=== PATIENT | female | born 1980 | race Caucasian/White ===

== ENCOUNTER → 2023-09-21 10:25 | Outpatient (REF) | payer OTHER, SELFPAY | LOC: RAD 10:25 | PROVIDERS: ATTENDING PHYSICIAN Family Medicine | DX: M17.12 Unilateral primary osteoarthritis, left knee (principal) | CPT/HCPCS: 73564 ==

== ENCOUNTER → 2024-01-23 10:09 | Outpatient (REF) | payer OTHER, SELFPAY ==
[2024-01-23 11:57] LABS: Rubella Positive
[2024-01-23 12:28] LABS: Hepatitis B Surface Antibody Negative
[2024-01-25 15:57] LABS: Mumps Virus IgG Positive; Rubeola (Measles) IgG Negative; Varicella Zoster IgG (VZV) Positive
== END ==
LOC: OHS 10:09
PROVIDERS: ATTENDING PHYSICIAN Nurse Practitioner Family
DX: Z23 Encounter for immunization (principal)
CPT/HCPCS: 36415; 86480; 86706; 86735; 86762; 86765; 86787

== ENCOUNTER → 2024-02-08 14:42 | Outpatient (REF) | payer OTHER, SELFPAY | LOC: WDC 14:42 | PROVIDERS: ATTENDING PHYSICIAN Obstetrics & Gynecology; FAMILY PHYSICIAN Family Medicine | DX: Z12.31 Encounter for screening mammogram for malignant neoplasm of breast (principal) | CPT/HCPCS: 77063; 77067 ==

== ENCOUNTER → 2025-02-19 07:56 | Outpatient (REF) | payer OTHER, SELFPAY | LOC: WDC 07:56 | PROVIDERS: ATTENDING PHYSICIAN Student in an Organized Health Care Education/Training Program; FAMILY PHYSICIAN Family Medicine | DX: Z12.31 Encounter for screening mammogram for malignant neoplasm of breast (principal) | CPT/HCPCS: 77063; 77067 ==

== ENCOUNTER → 2025-03-18 10:05 | Outpatient (REF) | payer OTHER, SELFPAY | LOC: WDC 10:05 | PROVIDERS: ATTENDING PHYSICIAN Student in an Organized Health Care Education/Training Program; FAMILY PHYSICIAN Family Medicine | DX: R92.8 Other abnormal and inconclusive findings on diagnostic imaging of breast (principal) | CPT/HCPCS: 76642 ==

== ENCOUNTER → 2025-04-14 08:12 | Outpatient (REF) | payer OTHER, SELFPAY ==
--- NOTE | 2025-04-14 14:01 | OID.BR.INTR ---
[facility] Breast Navigator - Initial
- -
Date of Contact: 04/14/25
Met with patient. Patient given written information on navigator services available at [facility]. Will follow up as needed per protocol.
== END ==
LOC: WDC 08:12
PROVIDERS: ATTENDING PHYSICIAN Student in an Organized Health Care Education/Training Program; FAMILY PHYSICIAN Family Medicine
DX: N63.11 Unspecified lump in the right breast, upper outer quadrant (principal)
CPT/HCPCS: 19083; 88305; 88341; 88342; 88360; A4648

== ENCOUNTER → 2025-05-08 09:22 | Outpatient (REF) | payer OTHER, SELFPAY ==
[2025-05-08 09:04] LABS: HCG, Serum Qualitative Screen Negative
[2025-05-08 09:08] LABS: Glucose 85 mg/dl (70-99)
== END ==
LOC: PET 09:22
PROVIDERS: ATTENDING PHYSICIAN Surgery
DX: C50.411 Malignant neoplasm of upper-outer quadrant of right female breast (principal); Z01.812 Encounter for preprocedural laboratory examination
CPT/HCPCS: 36415; 78815; 82947; 84703; A9552

== ENCOUNTER → 2025-05-08 16:27 | Outpatient (REF) | payer OTHER, SELFPAY | LOC: MRI 3T 16:27 | PROVIDERS: ATTENDING PHYSICIAN Surgery; FAMILY PHYSICIAN Family Medicine | DX: C50.411 Malignant neoplasm of upper-outer quadrant of right female breast (principal) | CPT/HCPCS: 77049; A9585 ==

== ENCOUNTER → 2025-06-13 09:31 | Outpatient (REF) | payer OTHER, SELFPAY | LOC: HWRAD 09:31 | PROVIDERS: ATTENDING PHYSICIAN Obstetrics & Gynecology; FAMILY PHYSICIAN Family Medicine | DX: N92.6 Irregular menstruation, unspecified (principal) | CPT/HCPCS: 76856 ==

== ENCOUNTER → 2025-06-26 07:36 | Outpatient (REF) | payer OTHER, SELFPAY | LOC: WDC 07:36 | PROVIDERS: ATTENDING PHYSICIAN Surgery | DX: C50.411 Malignant neoplasm of upper-outer quadrant of right female breast (principal) | CPT/HCPCS: 38792; 76942; A9541 ==

== ENCOUNTER 2025-06-27 13:39 | Inpatient (IN) | payer OTHER, SELFPAY ==
[2025-06-27] VITALS (9 sets, daily range): BP systolic 0–135; BP diastolic 56–94; BMI 23.3; BMI 21.9
[2025-06-27] MEDS: NORMOSOL-R/PLASMALYTE-A 1000 IV (13:37)
[2025-06-27] MEDS: TRANSDERM-SCOP 1 PATCH TRANSDERM (14:01)
[2025-06-27] MEDS: LOVENOX 40 MG SC (14:01)
[2025-06-27 14:04] LABS: Prealbumin (Transthyretin) 27.4 mg/dl (17.6-36.0)
--- NOTE | 2025-06-27 16:14 | W.DCSUMMARY ---
Discharge Summary
Discharge Data
Date of Admission: 06/27/25
Date of Discharge: 06/28/25
-
Pending Results: No
Hospital Course
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 Routine postoperative course. Progressively able to tolerate regular diet, void, ambulate. Pain well controlled on PO meds. Discharged POD 1 with close surgical follow up
and VN.
Discharge Plan
-
Patient Disposition: Home with Home Care
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
Condition: Good
Diet: Regular
Activity: No strenuous activity
Additional Activity: T Anish arms for ROM, no heavy lifting > 10 lbs
Driving Restrictions: Not until seen by your Dr
Bathing Restrictions: OK to Shower
Other Services: VN
Wound Care: Strip and record drain output twice daily, light compression bra, dressings will be removed in office on monday (remove if wet from shower)
Referrals:
Cee Lambert MD [Family Provider, Family Practice]
Prescriptions:
New
acetaminophen [Tylenol Extra Strength] 500 mg Tablet
1,000 mg PO Q6 30 Days Qty: 240 0RF
gabapentin 300 mg Capsule
300 mg PO TID 30 Days Qty: 90 3RF
diazepam 5 mg Tablet
5 mg PO TID PRN (Reason: muscle spasms) 14 Days Qty: 42 0RF
oxycodone 5 mg Tablet
5 mg PO Q6H PRN (Reason: severe breakthrough pain) 14 Days Qty: 12 0RF
Patient Comments:
denies taking anytime recently
cefadroxil 500 mg capsule
500 mg PO BID Qty: 42 0RF
Patient Comments:
PO antibotic for when d/c home
Continued
levothyroxine 75 MCG tablet
75 mcg PO DAILY
lisinopril 5 MG tablet
5 mg PO DAILY
atorvastatin 80 mg Tablet
80 mg PO HS
benzoyl peroxide [Foaming Acne Face Wash] 10 % cleanser
1 applic TOPICAL DAILY
clindamycin phosphate 1 % lotion
1 applic TOPICAL DAILY
ezetimibe [Zetia] 10 mg Tablet
10 mg PO HS
duloxetine 20 mg Capsule,Delayed Release(Dr/Ec)
20 mg PO DAILY
melatonin
1 dose PO HS PRN (Reason: insomnia)
Intrauterine Device
Rx Instructions:
implanted currently
Held
aspirin 81 mg Tablet
81 mg PO HS
Hold Instructions: Resume on 07/09/25.
Discontinued
Tylenol PM
1 dose PO HS PRN (Reason: sleep)
Discharge Orders:
Discharge Patient (As Directed); Ordered 06/28/25
Ordered By: Gladys Frye
Discharge Date and Time
Discharge Date/Time: 06/28/25 14:52
Print Language: MALTESE
--- NOTE | 2025-06-27 16:14 | OR.RPT ---
Addendum entered and electronically signed by Faheem Lincoln MD 07/01/25 13:59:
Date of procedure: 06/27/2025
Original Note:
Operative Report
Operative Report
Surgeon: TYLER Lincoln MD
Preoperative diagnosis: Breast cancer
Postoperative diagnosis: Same
Procedure:
1. Bilateral immediate breast reconstruction with prepectoral tissue expanders
2. Total anterior coverage technique for ADM wrap
Complications: None
Anesthesia: General
EBL: 100cc
Hackler Doll Wigs size: 13 cm
Indications for procedure: Patient was referred to me by Dr. Frye with a recent diagnosis of breast cancer. She was planned to undergo bilateral mastectomy. We discussed her options for breast reconstruction at length including implant based
and autologous options. The patient opted for immediate reconstruction with tissue expanders. She understands that the final reconstruction will be staged. We also discussed the use of ADM and spy angiography. Risks include reconstructive
failure, capsular contracture, infection, delayed wound healing, mastectomy skin flap necrosis, hematoma, seroma and need for repeat procedure. Patient understood these risks and desired to proceed. Consents were signed accordingly.
Procedure in detail: Patient was identified the preoperative area and the surgical site was confirmed to be the bilateral breast. All questions were answered and consents were confirmed. Patient was then sat upright and normal anatomical landmarks
were marked including midline and inframammary fold. Patient was then taken back to the operating room placed supine on the table. She was prepped and draped in the usual sterile fashion using ChloraPrep solution. A Lamas catheter was placed. A
timeout for patient safety was performed was confirmed that bilateral SCDs were in place and preoperative antibiotics administered. The procedure began with Dr. Frye first performing the mastectomy. Her op report will be dictated separately.
When I entered the procedure, the first sided mastectomy had been completed. As such I inspected the wound bed of the chest wall and ensured meticulous hemostasis. The base width was measured and appropriate tissue cabinet worker was selected. Two 6 x
16 sheets of Cortiva ADM were soaked in dilute Betadine solution and passed through the skin graft mesher on carrier of 1-1.5. This construct was then draped around the tissue cabinet worker in a total anterior coverage technique. The cabinet worker ADM
construct was then sutured to the chest wall with a series of 2-0 silk sutures. Pectoralis and intercostal blocks were performed with Marcaine. 2 drains were then placed in the preaxial area line with a long subcutaneous tunnel and sutured in
place with 2-0 Prolene sutures. The wound was irrigated with double antibiotic solution and dilute Betadine. The mastectomy incisions were then closed with a series of 3-0 Vicryl's in the deep subcutaneous tissues followed by 3-0 and 4-0
Monocryl's in the deep dermis and superficial skin.
Attention was then placed on the contralateral side after completion of the mastectomy. The exact same procedure was performed. An cabinet worker of the same size was opened and 2 sheets of ADM were soaked in Betadine, meshed, and draped around the
anterior surface of the cabinet worker in a total anterior coverage technique. The construct was then sutured to the chest wall using 2-0 silks. Pectoralis and intercostal blocks were performed. Meticulous hemostasis was ensured and the wound was
irrigated with combination of double antibiotic solution consisting of Ancef and gentamicin as well as dilute Betadine. The wound was closed in layers with 3-0 Vicryl followed by 3-0 Monocryl and 4-0 Monocryl superficial skin.
The wounds were dressed accordingly and a supportive bra was placed. The patient was extubated taken to the PACU for further care. All counts were correct at the end the case was performed out complication.
--- NOTE | 2025-06-27 16:15 | W.IMMPOSTOP ---
Surgical Immed Post Op Note
-
Primary Surgeon: TYLER Lincoln MD
Assisting Surgeon:
Pre-op Diagnosis: Breast CA
Post-op Diagnosis: Same
Procedure Performed: Bilateral immediate breast reconstruction with tissue expanders, ADM
Anesthesia Type: GA
Specimen / Cultures: Per Dr. Frye
Estimated Blood Loss: 100cc
Complications: None
Operative Findings: As expected
[2025-06-27 18:17] LABS: Hematocrit 37.0 % (37.0-47.0); Hemoglobin 12.7 g/dL (12.0-16.0); Mean Corp Hgb Conc. 34.3 g/dL (33.0-37.0); Mean Corpuscular Volume 95.4 fL (81.0-99.0); Nucleated Red Blood Cells % 0 %; Platelet Count 261 10^3/uL (130-400); Red Cell Dist. Width 13.1 % (11.5-14.5)
[2025-06-27 18:29] LABS: PT 14.5 Sec (11.4-14.6)
[2025-06-27 18:30] LABS: APTT 34.8 Sec (23.4-35.0)
[2025-06-27] MEDS: DILAUDID 0.25 MG IV (21:16)
--- NOTE | 2025-06-27 21:45 | PTCARENOTE ---
Pt 44 y/o F arrived on 2S at 01:15 post-op b/l Mastectomies with immediate breast reconstruction with tissue expanders, ebl 100. PMH Giorgi's disease, HTN, HLD, Primary osteoarthritis of left knee, PVCs (premature ventricular contractions), Sinus
tachycardia, Other chronic pain, Aortic root dilation. Pt wearing a surgical bra, with incisions covered with a surgical dressing on b/l breasts and 2 MARINO drains (drains A&B) on right breast and 2 MARINO drains (drains C&D) on left breast. The 4 MARINO
drains are to be stripped, emptied & recorded every 4 hours. Pt arrived on unit with a Adams. PT AOX3, sister and friend with pt, pain addressed, bed in a low position, call light in reach.
[2025-06-27] MEDS: VALIUM 5 MG PO (21:50)
[2025-06-27] MEDS: NEURONTIN 300 MG PO (21:50)
[2025-06-27] MEDS: COLACE 100 MG PO (21:50)
[2025-06-27] MEDS: ZETIA 10 MG PO (21:53)
[2025-06-27] MEDS: LIPITOR 80 MG PO (21:53)
[2025-06-27] MEDS: NEURONTIN PO (22:01)
[2025-06-27] MEDS: VALIUM PO (22:01)
[2025-06-27] MEDS: TYLENOL 1000 MG PO (23:00)
[2025-06-28 00:37] VITALS: BP 99/65
[2025-06-28 01:35] VITALS: BP 96/68
[2025-06-28] MEDS: ANCEF 5 IV ×2 (03:05→13:38)
[2025-06-28 05:00] VITALS: BP 105/71
[2025-06-28] MEDS: TYLENOL 1000 MG PO ×2 (05:15→13:38)
[2025-06-28] MEDS: SYNTHROID 75 MCG PO (05:15)
[2025-06-28 06:47] LABS: Hematocrit 33.0 % (37.0-47.0); Hemoglobin 11.4 g/dL (12.0-16.0)
[2025-06-28 07:06] LABS: Blood Urea Nitrogen 10 mg/dl (7-17); Calcium 7.8 mg/dl (8.4-10.2); Carbon Dioxide 25 mmol/L (22-30); Chloride 107 mmol/L (98-107); Estimated Creatinine Clearance 94 ml/min; Glucose 98 mg/dl (70-99); Potassium 4.2 mmol/L (3.5-5.1); Sodium 135 mmol/L (135-145); eGFR > 60.00
[2025-06-28 07:40] VITALS: BP 107/72
--- NOTE | 2025-06-28 08:49 | W.PN.UPDATE ---
Update Note
Progress Note Update
The patient is a 44 Y/O female POD #1 S/P bilateral nipple sparing mastectomies and right sentinel lymph node mapping and biopsy with immediate implant-based reconstruction by Dr. Lincoln. She did not sleep well last night but was able to eat
breakfast and is taking her prescribed pain medication regimen. Her Lamas catheter needs to be removed. Her incisions are clean and dry and flaps are viable. Plan is to discharge to home with VNA in place. She will see Dr. Lincoln next week and
myself in 2 weeks. Pathology is pending
--- NOTE | 2025-06-28 08:55 | W.DS.TRANS ---
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
-
Discharge Instructions:
Sleep Apnea Risk Low
Discharge Diagnosis/Procedures s/p bilateral mastectomy and immediate public speaker
reconstruction
Diet Regular
Activity No strenuous activity
Additional Activity T Anish arms for ROM, no heavy lifting > 10 lbs
Driving Restrictions Not until seen by your Dr
Bathing Restrictions OK to Shower
Other Services VN
Wound Care Strip and record drain output twice daily, light
compression bra, dressings will be removed in
office on monday (remove if wet from shower)
Instructions:
Stand-Alone Forms:
Changes to Home Medications: No
Discharge Medications:
DC Medications w/original date entered in [employer]
levothyroxine 75 mcg tablet 75 mcg PO DAILY Thyroid 09/05/19
lisinopril 5 mg tablet 5 mg PO DAILY Blood Pressure 02/28/20
aspirin 81 mg tablet 81 mg PO HS Blood Clot Prevention/Tx 06/26/25
Held on 06/27/25. Instructions: Resume on 07/09/25.
atorvastatin 80 mg tablet 80 mg PO HS cholesterol 06/26/25
benzoyl peroxide 10 % topical cleanser (Foaming Acne Face Wash) 1 applic topical DAILY Skin Issues 06/26/25
clindamycin phosphate 1 % lotion 1 applic topical DAILY Skin Issues 06/26/25
duloxetine 20 mg capsule,delayed release 20 mg PO DAILY depression/anxiety 06/26/25
ezetimibe 10 mg tablet (Zetia) 10 mg PO HS cholesterol 06/26/25
melatonin 1 dose PO HS PRN insomnia 06/26/25
Intrauterine Device 06/27/25
acetaminophen 500 mg tablet (Tylenol Extra Strength) 1,000 mg (2 x 500 mg) PO Q6 30 days #240 tabs 06/27/25
cefadroxil 500 mg capsule 500 mg PO BID #42 caps 06/27/25
diazepam 5 mg tablet 5 mg PO TID PRN muscle spasms 14 days #42 tabs 06/27/25
gabapentin 300 mg capsule 300 mg PO TID 30 days #90 caps 06/27/25
oxycodone 5 mg tablet 5 mg PO Q6H PRN severe breakthrough pain 14 days #12 tabs 06/27/25
Home Medication Changes
Pending Results: Yes (pathology report)
Total time spent discharging patient (in min): 20
--- NOTE | 2025-06-28 09:08 | W.IMMPOSTOP ---
Surgical Immed Post Op Note
-
Primary Surgeon: Uday
Assisting Surgeon: None
Pre-op Diagnosis: Left breast ca
Post-op Diagnosis: Left breast ca
Procedure Performed: Bilateral nipple-sparing mastectomies, right sentinel lymph node mapping and biopsy
Anesthesia Type: GET
Specimen / Cultures: Bilateral breasts, right sentinel nodes
Estimated Blood Loss: 100cc
Complications: None
Operative Findings: None
--- NOTE | 2025-06-28 09:09 | OR.RPT ---
Operative Report
Operative Report
Date of procedure: 06/27/2025
Surgeon: Uday
Preoperative diagnosis: Right breast carcinoma
Postoperative diagnosis: Right breast carcinoma
Procedure: Bilateral nipple sparing mastectomies and right sentinel lymph node mapping and biopsy
The patient is a 44-year-old female who presented with locally advanced right breast carcinoma. 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
treatment. On the day prior to the procedure she presented to the breast imaging center where technetium radiotracer was injected into the right breast parenchyma. On the day of the procedure she presented to same-day surgical services unit where
she was prepped. DVT and antibiotic prophylaxis were provided. She verified site and procedure and was taken to the operating room. In the supine position general anesthesia was induced. Lamas catheter was inserted using aseptic technique. Both
breasts and chest were prepped and draped in the usual sterile fashion. Appropriate timeout was performed by all staff members.
Inframammary incision was made beginning on the left side. Breast was elevated off the chest wall using the PlasmaBlade and lighted retractor. Any larger vessels were controlled with 3-0 silk ties. Then the oncoplastic plane was entered and the
skin and subcutaneous tissue was removed and elevated off the underlying breast parenchyma. Care was taken to preserve integrity of blood supply to the flap. The breast was taken off the chest wall. It was oriented for the pathologist and time
out of body was noted. Wound was irrigated and a moist pack was placed and plastic surgery entered to begin the reconstructive portion of the procedure. We moved to the right side and performed the mastectomy in the same fashion. Once that was
removed entry into the axilla was obtained by incising clavipectoral fascia with the cautery. Using the neoprobe gamma probe 3 sentinel node packets were encountered and excised. Feeding vessels to the nodes were controlled with 3-0 silk tie.
Again a moist pack was placed and plastic surgery continued with the reconstructive portion of the procedure
([id number])
Wayland Node Bx Breast Cancer
Wayland Node Bx Breast Cancer
Operation performed with curative intent: Yes
Tracer(s) to ID Wayland Nodes in Non-Neoadjuvant setting: Radioactive Tracer
Tracer(s) to ID Sentinal Nodes in the Neoadjuvant Setting: N/A
All nodes at end of dye-filled Lymphatic Channel removed: N/A
All Significantly Radioactive Nodes were removed: Yes
All Palpably Suspicious Nodes were Removed: Yes
Bx Proven Pos Nodes Marked Prior to Chemo ID'd & Removed: N/A
[2025-06-28] MEDS: CYMBALTA DELAYED RELEASE 20 MG PO (09:19)
[2025-06-28] MEDS: COLACE 100 MG PO (09:19)
[2025-06-28] MEDS: NEURONTIN 300 MG PO (09:19)
[2025-06-28] MEDS: ROXICODONE 5 MG PO (09:19)
[2025-06-28] MEDS: VALIUM 5 MG PO (09:20)
[2025-06-28] MEDS: ZESTRIL 5 MG PO (09:20)
[2025-06-28 11:25] VITALS: BP 108/76
[2025-06-28] MEDS: REMOVE SCOPOLAMINE PATCH 1 PATCH REMOVE (13:38)
--- NOTE | 2025-06-28 13:51 | CM ---
Initial assessment completed with pt.
Pt is a 44yr old female admitted for bilateral mastectomy.
At baseline, pt is indep with mobility/ADLs, drives, and works at [employer]
Pt lives with her mother who will assist at sd.
Pt understanding that she can not drive for 2 weeks and can not work for 6 weeks.
Pt interested in [facility] at sd.
PCP; Cee Lambert
Pharm; JON Abdi
PLAN; Home with VN
== END 2025-06-28 14:52 | disposition home health service (06) | DRG 581 ==
LOC: 2 SOUTH 13:39
PROVIDERS: Surgery Plastic and Reconstructive Surgery; ADMITTING PHYSICIAN Surgery; FAMILY PHYSICIAN Family Medicine
PROC: 0HHV0NZ Insertion of Tissue Expander into Bilateral Breast, Open Approach (ICD-10-PCS; 2025-06-27)
PROC: 07B50ZX Excision of Right Axillary Lymphatic, Open Approach, Diagnostic (ICD-10-PCS; 2025-06-27)
PROC: 0HTV0ZZ Resection of Bilateral Breast, Open Approach (ICD-10-PCS; 2025-06-27)
DX: C50.911 Malignant neoplasm of unspecified site of right female breast (principal); C50.912 Malignant neoplasm of unspecified site of left female breast; E78.00 Pure hypercholesterolemia, unspecified; E03.9 Hypothyroidism, unspecified; I10 Essential (primary) hypertension; Z17.0 Estrogen receptor positive status [ER+]; Z17.21 Progesterone receptor positive status; Z17.32 Human epidermal growth factor receptor 2 negative status; Z79.890 Hormone replacement therapy; Z79.899 Other long term (current) drug therapy
CPT/HCPCS: 80048; 82652; 84134; 85014; 85018; 85025; 85611; 85732; 88307; 88341; 88342; 88360; C1789; L8000; Q4100

== ENCOUNTER 2025-07-08 20:10 | Inpatient (IN) | payer OTHER, SELFPAY ==
[2025-07-08 17:19] VITALS: BP 131/79
--- NOTE | 2025-07-08 17:58 | ED.GENMED ---
History of Present Illness
<ELSY Stewart - Last Filed: 07/08/25 20:56>
General
Chief Complaint: Post Operative Problem(s)
Source: patient and family
Exam Limitations: none
Time Seen by Provider: 07/08/25 17:35
Nursing documentation reviewed up to this point in time: agreed with
History of Present Illness
History of Present Illness:
Patient is a 44-year-old female with history of hypercholesteremia hypothyroidism hypertension right breast carcinoma status post bilateral mastectomy June 27. Patient at the time of reconstruction has breast expanders currently in place
bilaterally on Monday patient noted that her right breast was becoming more swollen and painful.. She did see yesterday in the office and was noted to have some scabbing under both breasts and instructed to go to the ER if things get
worse. Today she developed a fever of 102.
discharge instructions state the pt was discharged on cefadroxil and is taking.
Past History
<ELSY Stewart - Last Filed: 07/08/25 20:56>
Past History
ED Past Medical History: None
ED Past Surgical History: None
Social History
Tobacco: Non-smoker
Alcohol: Occasional
Drug: None
Personal: Single
Living: with family
Employment: Employed ([employer])
Phy Exam
<ELSY Stewart - Last Filed: 07/08/25 20:56>
General Physical Exam
General Presentation: no apparent distress
General age: appears stated age
General Skin: warm and dry
General Habitus: normal
General Mental: alert
General Hydration: appears well hydrated
Neurological Exam
Neurological Exam: alert and oriented x3
Musculoskeletal Exam
Musculoskeletal Exam: full ROM
Skin Exam
Skin Exam: normal color and warm/dry
Psychiatric Exam
Psychiatric Exam: normal mood/affect
Course
<ELSY Stewart - Last Filed: 07/08/25 20:56>
Orders/Labs/Results
Orders:
Orders
07/08/25 17:37
Complete Blood Count/With Diff Urgent
Comprehensive Metabolic Panel Urgent
Lactic Acid Urgent
Blood Culture Urgent
BUTCH Source: Blood/Venous
Specimen Description:
07/08/25 18:19
Electrocardiogram (*1) Stat
Reason for Study: Other
Other Reason for Exam: chest pain
Cardiac Monitoring- Treatment ONCE
EKG- Treatment ONCE
07/08/25 18:22
CT Chest With Iv Contrast Urgent
Comment:
Reason For Exam: eval for breast infection mastectomy w/ expanders
07/08/25 18:23
Blood Culture Urgent
BUTCH Source: Blood/Venous
Specimen Description:
07/08/25 18:25
0.9% Sodium Chloride 1000 ml [Nss] 1,000 ml IV BOLUS
Acetaminophen [Tylenol] 1,000 mg PO NOW STA
07/08/25 18:31
Vancomycin [Vancocin] 1,500 mg 0.9% Sodium Chloride 500 ml [Nss] 500 ml IV NOW
07/08/25 19:42
Admit/Transfer Patient As Directed
Co-Sign Provider:
Level of Care: Inpatient admission
Assign to:: Medical/Surgical
Physician / Group: Marcus
Diagnosis: Post-Surgical Infection
Reason for Hospitalization: Post-Surgical Infection
Expected length of stay greater than two midnights?: Yes
ELOS- Estimated Length of Stay in days: 3
I certify the patient meets the requirements for IP care: Yes
0.9% Sodium Chloride 1000 ml [Nss] 1,000 ml IV BOLUS
PRN Pain Medication Management As Directed
May give lesser potent ordered pain med per pt: Yes
preference::
Protocol:: Medication orders for pain may be administered in a
manner that supports deferring to patient preference
when the pt is:
- Requesting an ordered lesser potent pain medication.
Least to most potent pain medications are defined
as: acetaminophen < NSAID < tramadol < opioids
(morphine, oxycodone, hydromorphone).
- Requesting a lesser dose of the same medication IF
ORDERED.
- Requesting a less intrusive route of administration
if both routes are prescribed by the provider (PO <
IV).
07/08/25 19:44
Code Status As Directed
Resuscitation Status: Full Code
Abnormal Lab Results
07/08/25
17:37
WBC 14.9 H 10^3/uL
(4.8-10.8)
RBC 3.74 L 10^6/uL
(4.20-5.40)
MCV 102.9 H fL
(81.0-99.0)
MCH 33.4 H pg
(27.0-31.0)
MCHC 32.5 L g/dL
(33.0-37.0)
Abs Immat Gran (auto) 0.1 H 10^3/uL
(0-0.05)
Absolute Neuts (auto) 12.5 H 10^3/uL
(1.4-6.5)
Absolute Monos (auto) 0.9 H 10^3/uL
(0.1-0.6)
Neutrophils % 84.0 H %
(42.2-75.2)
Lymphocytes % 8.7 L %
(20.5-51.1)
Glucose 114 H mg/dl
(70-99)
07/08/25 17:37
07/08/25 17:37
Vital Signs
Initial and Last Documented VS:
Initial Vital Signs
Temp Pulse Resp BP Pulse Ox
100.2 F 145 16 131/79 99
07/08/25 17:19 07/08/25 17:19 07/08/25 17:19 07/08/25 17:19 07/08/25 17:19
Last Documented Vital Signs
Temp Pulse Resp BP Pulse Ox
99.2 F 105 20 131/79 99
07/08/25 19:44 07/08/25 20:00 07/08/25 20:03 07/08/25 17:19 07/08/25 18:00
<Max Robles, DO - Last Filed: 07/08/25 19:32>
Orders/Labs/Results
Orders:
Orders
07/08/25 17:37
Complete Blood Count/With Diff Urgent
Comprehensive Metabolic Panel Urgent
Lactic Acid Urgent
Blood Culture Urgent
BUTCH Source: Blood/Venous
Specimen Description:
07/08/25 18:19
Electrocardiogram (*1) Stat
Reason for Study: Other
Other Reason for Exam: chest pain
Cardiac Monitoring- Treatment ONCE
EKG- Treatment ONCE
07/08/25 18:22
CT Chest With Iv Contrast Urgent
Comment:
Reason For Exam: eval for breast infection mastectomy w/ expanders
07/08/25 18:23
Blood Culture Urgent
BUTCH Source: Blood/Venous
Specimen Description:
07/08/25 18:25
0.9% Sodium Chloride 1000 ml [Nss] 1,000 ml IV BOLUS
Acetaminophen [Tylenol] 1,000 mg PO NOW STA
07/08/25 18:31
Vancomycin [Vancocin] 1,500 mg 0.9% Sodium Chloride 500 ml [Nss] 500 ml IV NOW
07/08/25 19:42
Admit/Transfer Patient As Directed
Co-Sign Provider:
Level of Care: Inpatient admission
Assign to:: Medical/Surgical
Physician / Group: Marcus
Diagnosis: Post-Surgical Infection
Reason for Hospitalization: Post-Surgical Infection
Expected length of stay greater than two midnights?: Yes
ELOS- Estimated Length of Stay in days: 3
I certify the patient meets the requirements for IP care: Yes
0.9% Sodium Chloride 1000 ml [Nss] 1,000 ml IV BOLUS
PRN Pain Medication Management As Directed
May give lesser potent ordered pain med per pt: Yes
preference::
Protocol:: Medication orders for pain may be administered in a
manner that supports deferring to patient preference
when the pt is:
- Requesting an ordered lesser potent pain medication.
Least to most potent pain medications are defined
as: acetaminophen < NSAID < tramadol < opioids
(morphine, oxycodone, hydromorphone).
- Requesting a lesser dose of the same medication IF
ORDERED.
- Requesting a less intrusive route of administration
if both routes are prescribed by the provider (PO <
IV).
07/08/25 19:44
Code Status As Directed
Resuscitation Status: Full Code
Abnormal Lab Results
07/08/25
17:37
WBC 14.9 H 10^3/uL
(4.8-10.8)
RBC 3.74 L 10^6/uL
(4.20-5.40)
MCV 102.9 H fL
(81.0-99.0)
MCH 33.4 H pg
(27.0-31.0)
MCHC 32.5 L g/dL
(33.0-37.0)
Abs Immat Gran (auto) 0.1 H 10^3/uL
(0-0.05)
Absolute Neuts (auto) 12.5 H 10^3/uL
(1.4-6.5)
Absolute Monos (auto) 0.9 H 10^3/uL
(0.1-0.6)
Neutrophils % 84.0 H %
(42.2-75.2)
Lymphocytes % 8.7 L %
(20.5-51.1)
Glucose 114 H mg/dl
(70-99)
07/08/25 17:37
07/08/25 17:37
Vital Signs
Initial and Last Documented VS:
Initial Vital Signs
Temp Pulse Resp BP Pulse Ox
100.2 F 145 16 131/79 99
07/08/25 17:19 07/08/25 17:19 07/08/25 17:19 07/08/25 17:19 07/08/25 17:19
Last Documented Vital Signs
Temp Pulse Resp BP Pulse Ox
99.2 F 105 20 131/79 99
07/08/25 19:44 07/08/25 20:00 07/08/25 20:03 07/08/25 17:19 07/08/25 18:00
<ELSY Stewart - Last Filed: 07/08/25 20:56>
MDM/Problems Addressed
MDM/Problems Addressed:
Patient is a 44-year-old female with recent bilateral mastectomy June [address] She started with pain in the right breast on Monday several days ago and started with a fever today of 102. She presents tachycardic low-grade
temp. Patient last took Tylenol around 2 PM and her pain medication. She has obvious scabbing to bilateral breast but right breast is very red, there is very minimal redness to the left breast but there is still erythema. Case discussed with
Uday as well as Dr. Lincoln. Broad-spectrum antibiotics, vancomycin ordered more fluids and Tylenol. Plastics does recommend getting a CAT scan with IV contrast.
Will require admission patient admitted to the hospital service.
Chronic conditions affecting care:
SVT high cholesterol
<ELSY Stewart - Last Filed: 07/08/25 20:56>
*Pulse Oximetry
SaO2: 99
Oxygen Mode of Delivery: Room air
Patient hypoxic: no
*Critical Care Note
Total Time (30-74mins, 75-104mins- exclusive of procedures): Not Applicable
<ELSY Stewart - Last Filed: 07/08/25 20:56>
Patient Management
Discussion with other providers: Facility Environmental Technician (Dr. Frye and DR Lincoln )
ED Attending Note
<ELSY Stewart - Last Filed: 07/08/25 20:56>
-
Portions of this chart may have been created with voice recognition software.� Occasional wrong word or��sound alike� substitutions may have occurred due to the inherent limitations of voice recognition software.
<Max Roblse DO - Last Filed: 07/08/25 19:32>
ED Attending Note
Patient seen and examined by attending physician: Yes
I performed the substantive portion of visit, reviewed & personally made and approve the management plan that is documented in note by myself or JAVED.: Yes
ED Attending Note:
I have seen and evaluated the patient with a [id number] encounter. I have spoken to the advance practicer provider and involved in the medical history, the physical exam, medical decision making.
Evaluation and management service: agree unless noted differently below.
Results interpretation: agree unless noted differently below.
Focused HPI: 44-year-old female presenting for evaluation of breast redness and pain. Patient has history of recent mastectomy
Physical exam: Cellulitic changes noted to right
Medical Decision Making: Given the fever cellulitis, will admit on antibiotics
Discharge Plan
Departure
Patient Disposition: Admit
Date of Disposition: 07/08/25
Time of Disposition: 18:37
Admit to: Med/Surg
Admit to doctor: hospitalist
Presentation/result/management discussed w/ accepting MD/DO: Hospitalist
Patient with high blood pressure during this ER visit?: Yes
Condition: Fair
Covid-19: Not Applicable
Discharge Problem:
Cellulitis of right breast
Interventions
Interventions:
*Risk Screen - Suicide Last Done: 07/08/25 17:21
*General Assessment Last Done: 07/08/25 18:26
*Neglect/Abuse Screening Last Done: 07/08/25 17:21
*ED- Fall Risk Assessment Last Done: 07/08/25 18:26
*ED COVID-19 Vaccine History Last Done: 07/08/25 18:26
*ED Influenza Vaccine History Last Done: 07/08/25 18:26
ED-Skin Assessment Last Done: 07/08/25 18:33
[2025-07-08 18:01] LABS: Hematocrit 38.5 % (37.0-47.0); Hemoglobin 12.5 g/dL (12.0-16.0); Mean Corp Hgb Conc. 32.5 g/dL (33.0-37.0); Mean Corpuscular Volume 102.9 fL (81.0-99.0); Nucleated Red Blood Cells % 0 %; Platelet Count 343 10^3/uL (130-400); Red Cell Dist. Width 13.9 % (11.5-14.5)
[2025-07-08 18:12] VITALS: BMI 24.1
[2025-07-08 18:17] LABS: ALT (SGPT) 19 U/L (0-35); AST (SGOT) 29 U/L (14-36); Albumin 4.3 g/dl (3.5-5.0); Alkaline Phosphatase 67 U/L (38-126); Blood Urea Nitrogen 11 mg/dl (7-17); Calcium 9.4 mg/dl (8.4-10.2); Carbon Dioxide 27 mmol/L (22-30); Chloride 100 mmol/L (98-107); Estimated Creatinine Clearance 76 ml/min; Glucose 114 mg/dl (70-99); Potassium 4.2 mmol/L (3.5-5.1); Sodium 136 mmol/L (135-145); Total Protein 6.9 g/dl (6.3-8.2); eGFR > 60.00
[2025-07-08] MEDS: TYLENOL 1000 MG PO (18:43)
[2025-07-08] MEDS: VANCOCIN 530 MG IV (18:43)
[2025-07-08] MEDS: NSS 1000 IV ×2 (18:43→20:06)
--- NOTE | 2025-07-08 19:46 | HPS.HSE ---
Family Physician
-
Family Physician: Cee Lambert
Chief Complaint
-
Pain, swelling and redness at surgical site
History of Present Illness
Patient is a 44y F with PMH significant for hypertension, hypothyroidism and breast cancer with recent mastectomy and reconstruction who presents to ED complaining of bilateral breast pain / swelling and redness as well as fever at home to 102.
Patient underwent bilateral mastectomy, lymph node biopsy and immediate tissue expansion reconstruction on 06/27/25. Patient was discharged to home with drains in place. She states that she felt generally poor on Monday with malaise. She was seen
by Dr. Lincoln on Monday and some crusting / scabbing was noted at incision sites. She has been taking cefadroxil since her surgery / discharge. Patient was advised to continue to monitor her incisions and report to the ED if any worsening. Today
she had fever at home to 102 and presented to the ED for evaluation.
Medical History
Past Medical History
Past Medical History: Reports Other
Additional Past Medical History:
Right Breast Cancer s/p Bilateral Mastectomy
Hypertension
Hypothyroidism
Anxiety / Depression
Past Surgical History: Reports Other
Additional Past Surgical History:
Bilateral Mastectomies, Lymph Node Biopsy, Tissue Sales Support Representative Reconstruction (06/27/25)
Breast Reduction (2003)
D&C
Left Knee Arthroscopy
Social History
Tobacco: Non-smoker
Alcohol: None
Drug: None
Family History
Family History: Other (Strong family h/o CAD including father with CABG at age 41.)
Allergies / Home Medications
Allergies reflects when Allergies were last updated in [employer].
Home Medications with original date entered in [employer]
Allergy/Medication List:
Allergies
Allergy/AdvReac Type Severity Reaction Status Date / Time
No Known Allergies Allergy Verified 06/27/25 13:30
Home Medications
levothyroxine 75 mcg tablet 75 mcg PO DAILY Thyroid 09/05/19
lisinopril 5 mg tablet 5 mg PO DAILY Blood Pressure 02/28/20
aspirin 81 mg tablet 81 mg PO HS Blood Clot Prevention/Tx 06/26/25
Held on 06/27/25. Instructions: Resume on 07/09/25.
atorvastatin 80 mg tablet 80 mg PO HS cholesterol 06/26/25
benzoyl peroxide 10 % topical cleanser (Foaming Acne Face Wash) 1 applic topical DAILY Skin Issues 06/26/25
clindamycin phosphate 1 % lotion 1 applic topical DAILY Skin Issues 06/26/25
duloxetine 20 mg capsule,delayed release 20 mg PO DAILY depression/anxiety 06/26/25
ezetimibe 10 mg tablet (Zetia) 10 mg PO HS cholesterol 06/26/25
melatonin 1 dose PO HS PRN insomnia 06/26/25
Intrauterine Device 06/27/25
acetaminophen 500 mg tablet (Tylenol Extra Strength) 1,000 mg (2 x 500 mg) PO Q6 30 days #240 tabs 06/27/25
cefadroxil 500 mg capsule 500 mg PO BID #42 caps 06/27/25
diazepam 5 mg tablet 5 mg PO TID PRN muscle spasms 14 days #42 tabs 06/27/25
gabapentin 300 mg capsule 300 mg PO TID 30 days #90 caps 06/27/25
oxycodone 5 mg tablet 5 mg PO Q6H PRN severe breakthrough pain 14 days #12 tabs 06/27/25
Review of Systems
-
History Source: Patient
A 12 point ROS was completed and negative except as noted: Yes
Constitutional: Reports Fever, Fatigue and Chills
EENT: Denies Sore Throat
Respiratory: Denies Cough or Trouble Breathing
Cardiac: Reports Chest Pain; Denies Palpitations
Abdomen/GI: Denies Abdominal Pain, Nausea, Vomiting or Diarrhea
: Denies Dysuria or Flank Pain
Musculoskeletal: Denies Joint Pain or Edema
Skin: Reports Other (Redness, swelling and pain at incision sites.)
Neurological: Reports Headache; Denies Dizzy
Physical Exam
Vital Signs
Vital Signs
Temp Pulse Resp BP Pulse Ox
99.2 F 109 24 131/79 99
07/08/25 19:44 07/08/25 19:30 07/08/25 19:30 07/08/25 17:19 07/08/25 18:00
Physical Exam
General: Other (44y F in no acute distress.)
HEENT: Moist mucous membranes and PERRLA
Respiratory: Clear; No Wheezes, Rales or Rhonchi
Cardiac: S1/S2 and Tachycardia; No Murmur
Breast: Other (Post-surgical changes with scabbing at incision sites. Surrounding erythema and induration with tenderness. No obvious fluctuance. MARINO drains in place with scant serosanguinous drainage.)
GI: Soft, Non Tender, Non Distended and Normal Bowel Sounds
Musculoskeletal: No Clubbing, No Cyanosis and No Edema
Neuro: AO x 3
Laboratory Results
-
07/08/25 17:37
07/08/25 17:37
Laboratory Results
Lactic Acid 1.9 mmol/L (0.7-2.0) 07/08/25 17:37
Total Bilirubin 0.5 mg/dl (0.2-1.3) 07/08/25 17:37
AST 29 U/L (14-36) 07/08/25 17:37
ALT 19 U/L (0-35) 07/08/25 17:37
Alkaline Phosphatase 67 U/L (38-126) 07/08/25 17:37
Impression/Plan
-
A/P: Patient is a 44y F with PMH significant for breast cancer s/p bilateral mastectomy, lymph node biopsy and immediate tissue expansion reconstruction on 06/27/25 who presents to ED for evaluation fo incision changes and fever.
Post-Op Wound Infection
- Admit for further evaluation and treatment.
- Abx with Vanco / Zosyn for now.
- Obtain deep / operative cultures if any drainage / procedure is performed.
- CT Chest pending this evening to evaluate for discrete collection, abscess, etc.
- Plastic Surgery evaluation for additional recommendations.
- Supportive care with pain control, IVF, antipyretics, etc.
Tachycardia
- Likely secondary to pain + fever.
- IVF support, antipyretics and pain control.
- Follow for improvement.
Benign Hypertension
- Stable. Continue lisinopril with holding parameters.
Hypothyroidism
- Stable. Continue T4 replacement.
DVT Prophylaxis: SCDs
Code Status: Full
[2025-07-08] MEDS: NEURONTIN 300 MG PO (21:28)
[2025-07-08 21:30] VITALS: BP 116/79
[2025-07-08] MEDS: LR 1000 IV (21:31)
[2025-07-08] MEDS: ZOSYN 50 IV (21:31)
--- NOTE | 2025-07-08 21:59 | PHA.VAN.IN ---
Assessment
- Assessment
Renal Function: Appears similar to baseline (SCr 0.8)
Concomitant Antimicrobials: Pipercillin/Tazobactam
AUC Dosing Plan
- Dosing Variables
Dosing Weight (kg): 61.8
Dosing CrCl (ml/min): 76
Vd coefficient (L/kg): 0.7
- Empiric Dosing
Initial / Loading Dose: Vanco 1500mg loading given 07/08/25 at 1843
Maintenance Regimen: Vanco 750mg Q12H starting 07/09/25 at 0600
Estimated AUC (mcg*h/mL): 531
Estimated Peak (mcg*h/mL): 31.2
Estimated Trough (mcg/ml): 10.3
Estimated Half Life (H): 10.2
- Monitoring
No levels ordered at this time: consider in the next few days
Pharmacokinetics Vancomycin I
- -
Patient Age: 44
Patient Sex: Female
Vancomycin Day #: 1
Indication: Skin And Soft Tissue
Requesting Provider: JL
Pertinent Antimicrobial Allergies:
No known drug allergies
Height / Weight:
Height 5 ft 3 in
Actual Weight 61.8 kg
Pertinent Past Medical History: Breast cancer
- Vital Signs / Lab Results
Temp Pulse Resp BP Pulse Ox
99.2 F 102 23 131/79 99
07/08/25 19:44 07/08/25 20:30 07/08/25 20:30 07/08/25 17:19 07/08/25 18:00
Lab Results - Hematology
07/08/25
17:37
WBC 14.9 H
Lab Results - Chemistry
07/08/25
17:37
BUN 11
Creatinine 0.8
Estimated Creat Clear 76
Albumin 4.3
07/08/25
17:37
Lactic Acid 1.9
[2025-07-08] MEDS: ZOSYN IV (22:33)
--- NOTE | 2025-07-09 00:19 | PTCARENOTE ---
07/08 21:19 pt was received from ER, pt observed with bilateral breast J-P drains, bilateral breast folds red,indurated and hot to touch. Pt IVF infusing, IV abt given. Pt oriented to unit , unit which she recalls well as she expressed she had
mastectomies with spacers inserted on 06/27/2025 and was in a room on this unit.
[2025-07-09 03:00] VITALS: BP 110/91
[2025-07-09] MEDS: ROXICODONE 5 MG PO ×2 (03:00→20:48)
--- NOTE | 2025-07-09 03:16 | DOWNTIME ---
There was a [employer] Downtime on 07/09/2025 from 0100 to 07/09/2025 at 0255. Downtime documentation of patient's care, including medication administrations, has been reconciled in the electronic record per guidelines. Refer to the
patient's paper chart under the miscellaneous tab to see printed paper medication records and downtime forms.
[2025-07-09] MEDS: ZOSYN 50 IV ×4 (04:04→22:41)
[2025-07-09] MEDS: SYNTHROID 75 MCG PO (05:26)
[2025-07-09] MEDS: VANCOCIN 150 IV ×2 (05:26→17:24)
[2025-07-09 06:00] VITALS: BMI 24.1
[2025-07-09 07:53] VITALS: BP 119/81
[2025-07-09] MEDS: LR 1000 IV ×2 (07:54→22:52)
[2025-07-09] MEDS: CYMBALTA DELAYED RELEASE 20 MG PO (07:54)
[2025-07-09] MEDS: NEURONTIN 300 MG PO ×3 (07:54→22:40)
[2025-07-09] MEDS: ZESTRIL 5 MG PO (07:54)
[2025-07-09 08:29] LABS: Hematocrit 31.4 % (37.0-47.0); Hemoglobin 10.6 g/dL (12.0-16.0); Mean Corp Hgb Conc. 33.8 g/dL (33.0-37.0); Mean Corpuscular Volume 98.7 fL (81.0-99.0); Platelet Count 292 10^3/uL (130-400); Red Cell Dist. Width 13.7 % (11.5-14.5)
[2025-07-09 09:28] LABS: Blood Urea Nitrogen 9 mg/dl (7-17); Calcium 9.0 mg/dl (8.4-10.2); Carbon Dioxide 27 mmol/L (22-30); Chloride 107 mmol/L (98-107); Estimated Creatinine Clearance 87 ml/min; Glucose 76 mg/dl (70-99); Potassium 4.1 mmol/L (3.5-5.1); Sodium 136 mmol/L (135-145); eGFR > 60.00
--- NOTE | 2025-07-09 09:35 | PHA.VAN.FU ---
Vancomycin Assessment / Plan
- Assessment
Renal Function: Stable
WBC's are: Trending Down
In the past 24 hrs, patient has been: Afebrile
- Dosing Plan
Continue: Vanc 750mg Q12H
- Monitoring Plan
No level(s) ordered at this time: consider levels in next few days
- Follow Up
Pharmacy will continue to follow.
Vancomycin Follow UP
- -
Patient Age: 44
Patient Sex: Female
Vancomycin Day #: 2
Indication: Skin And Soft Tissue
Requesting Provider: Dr. Velazquez
Pertinent Antimicrobial Allergies:
No known drug allergies
Height / Weight:
Height 5 ft 3 in
Actual Weight 61.689 kg
Pertinent Past Medical History: Breast cancer s/p bilateral mastectomy
- Vital Signs / Lab Results
Temp Pulse Resp BP Pulse Ox
99.1 F 98 19 119/81 98
07/09/25 07:53 07/09/25 07:54 07/09/25 07:53 07/09/25 07:54 07/09/25 07:53
Lab Results - Hematology
07/08/25 07/09/25
17:37 08:21
WBC 14.9 H 11.6 H
Lab Results - Chemistry
07/08/25 07/09/25
17:37 08:21
BUN 11 9
Creatinine 0.8 0.7
Estimated Creat Clear 76 87
Albumin 4.3
07/08/25
17:37
Lactic Acid 1.9
--- NOTE | 2025-07-09 10:41 | VNURNOTE ---
Addendum entered by Edie Chowdary RN 07/09/25 16:10:
[facility] Resumption referral placed in [facility].
Original Note:
Chart reviewed. Patient is current with [facility]. Will continue to follow hospital course and DC plans.
--- NOTE | 2025-07-09 12:47 | W.PN.HOSP.TC ---
Today's Communication/Plan
-
Monitor vital signs and see plan
Continue with antibiotics
Monitor leukocytosis
Plastics to evaluate
pharm prophylaxis for DVT if okay with plastics
Assessment / Plan
Assessment / Plan
General: No acute distress
HEENT: Moist mucous membranes and PERRLA
Respiratory: Clear; No Wheezes, Rales or Rhonchi
Cardiac: S1/S2 and Tachycardia; No Murmur
Breast: Other (Post-surgical changes with scabbing at incision sites. Surrounding erythema and induration with tenderness. MARINO drains in place with scant serosanguinous drainage.)
GI: Soft, Non Tender, Non Distended and Normal Bowel Sounds
Musculoskeletal: No Edema
Neuro: AO x 3
Post-Op Wound Infection with breast cellulitis
- Abx with Vanco / Zosyn for now.
- Obtain deep / operative cultures if any drainage / procedure is performed.
- CT Chest did not show any discrete collection/abscess. Mild bibasilar atelectasis versus scarring.
- Plastic Surgery evaluation for additional recommendations.
- Supportive care with pain control, IVF, antipyretics, etc.
Monitor leukocytosis
Tachycardia
- Likely secondary to pain + fever.
- IVF support, antipyretics and pain control.
- Follow for improvement.
Benign Hypertension
- Stable. Continue lisinopril with holding parameters.
Hypothyroidism
- Stable. Continue T4 replacement.
DVT Prophylaxis: SCDs; pharm ppx if ok with plastics
Code Status: Full
Anticipated Discharge: > 48 hours
Subjective/Interval History
-
Date of Service: July 09, 2025
feels little better
Objective Data
-
Labs:
Laboratory Results
07/09/25
08:21
WBC 11.6 H
Hgb 10.6 L
Hct 31.4 L
Plt Count 292
Sodium 136
Potassium 4.1
Chloride 107
Carbon Dioxide 27
BUN 9
Creatinine 0.7
Glucose 76
Calcium 9.0
Vital Signs:
Vital Signs
Temp Pulse Resp BP Pulse Ox
99.1 F 98 19 119/81 98
07/09/25 07:53 07/09/25 07:54 07/09/25 07:53 07/09/25 07:54 07/09/25 07:53
I&O
07/08/25 07/09/25 07/10/25
06:59 06:59 06:59
Intake Total 1270 / 1270
Output Total 170 / 170
Balance 1100 / 1100
[2025-07-09] MEDS: TYLENOL 650 MG PO (12:49)
--- NOTE | 2025-07-09 12:59 | CON.PS ---
Consultation - Plastic Surgery
Consultation Request
Date/Time Consultation Requested: 07/09/2025
Date/Time Consultation Performed: 07/09/2025
Performing Provider: TYLER Lincoln MD
Reason for Consultation: Cellulitis
Medical History
-
Chief Complaint: Breast pain, fever
History of Present Illness:
44-year-old female recently underwent bilateral nipple sparing mastectomy for breast cancer followed by insertion of bilateral tissue expanders. She was following a routine postoperative course and developed increasing pain likely associated with
too tight of a compression garment. This developed into blistering at the bilateral incisional sites. She was seen as an outpatient maintained on antibiotics but unfortunately the next day developed fever. Her right breast was warm and red. She
presented to the ED for further evaluation.
Allergies / Home Medications
Allergy/AdvReac Type Severity Reaction Status Date / Time
No Known Allergies Allergy Verified 06/27/25 13:30
�Medication �Instructions �Recorded �Confirmed �Type
levothyroxine 75 mcg tablet 75 mcg PO DAILY Thyroid 09/05/19 07/08/25 History
lisinopril 5 mg tablet 5 mg PO DAILY Blood Pressure 02/28/20 07/08/25 History
aspirin 81 mg tablet 81 mg PO HS Blood Clot 06/26/25 06/27/25 History
Held on 06/27/25. Prevention/Tx
Instructions: Resume on
07/09/25.
atorvastatin 80 mg tablet 80 mg PO HS cholesterol 06/26/25 07/08/25 History
benzoyl peroxide 10 % topical 1 applic topical DAILY Skin Issues 06/26/25 07/08/25 History
cleanser (Foaming Acne Face Wash)
clindamycin phosphate 1 % lotion 1 applic topical DAILY Skin Issues 06/26/25 07/08/25 History
duloxetine 20 mg capsule,delayed 20 mg PO DAILY depression/anxiety 06/26/25 07/08/25 History
release
ezetimibe 10 mg tablet (Zetia) 10 mg PO HS cholesterol 06/26/25 07/08/25 History
melatonin 1 dose PO HS PRN insomnia 06/26/25 07/08/25 History
Intrauterine Device 06/27/25 History
acetaminophen 500 mg tablet 1,000 mg (2 x 500 mg) PO Q6 30 06/27/25 07/08/25 Rx
(Tylenol Extra Strength) days #240 tabs
cefadroxil 500 mg capsule 500 mg PO BID #42 caps 06/27/25 07/08/25 Rx
diazepam 5 mg tablet 5 mg PO TID PRN muscle spasms 14 06/27/25 07/08/25 Rx
days #42 tabs
gabapentin 300 mg capsule 300 mg PO TID 30 days #90 caps 06/27/25 07/08/25 Rx
oxycodone 5 mg tablet 5 mg PO Q6H PRN severe 06/27/25 07/08/25 Rx
breakthrough pain 14 days #12 tabs
Physical Exam
Vital Signs
Temp 99.1 F 07/09/25 07:53
Temp route: Oral 07/09/25 07:53
Pulse 98 07/09/25 07:54
Resp Rate 19 07/09/25 07:53
Blood pressure 119/81 07/09/25 07:54
Blood pressure extremity used: Right upper arm 07/09/25 07:53
Position: Lying 07/09/25 07:53
SaO2 98 07/09/25 07:53
Oxygen Mode of Delivery Room air 07/09/25 07:53
Can the patient verbally communicate their pain? Yes 07/09/25 12:49
Pain scale ratin 07/09/25 12:49
Actual Weight 136 lb 07/09/25 06:00
Body Mass Index (BMI) 24.1 07/09/25 06:00
physical exam:
No acute distress
No increased work of breathing
Bilateral breasts with tissue expanders in place
Some blistering of the bilateral inframammary folds
Resolving redness of the right breast skin
Bilateral MARINO drains in place with serosanguineous fluid, no gross purulence
Lab Results
07/09/25 08:21
07/09/25 08:21
Assessment / Plan
-
Cellulitis following bilateral breast reconstruction with tissue expanders after nipple sparing mastectomy for breast CA
Patient underwent CT chest to rule out undrained periprosthetic fluid collections. Bilateral MARINO drains with similar amount of quality of output. No gross purulence. Right breast with some resolving redness consistent with a cellulitis. Reported
improvement on broad-spectrum IV antibiotics.
Long conversation was had about potential outcomes following infections after breast reconstruction. In the absence of periprosthetic fluid, cellulitis is more common and can be effectively treated with IV antibiotics. Should the periprosthetic
infection be diagnosed, likelihood of clearing that infection is much lower. At that point tissue expanders would need to be removed. Would be very uncommon that both tissue expanders were infected and the quality of the fluid coming out of the
drains right now is very similar.
A plan was made with the patient for trial of inpatient IV antibiotics to see clinical resolution of the erythema followed by outpatient oral antibiotics. As such the bilateral periprosthetic fluid was cultured sterilely to allow for assessment for
periprosthetic infection. There was minimal fluid obtained consistent with CT chest findings. That said should be enough to culture if bacteria are present.
Recommend infectious disease consult to follow-up culture data
Will follow to assess for clinical resolution of symptoms
Data Reviewed
-
CT Scan: Image Personally Visualized and interpreted
[2025-07-09] MEDS: SENOKOT-S 1 TABLET PO ×2 (14:30→20:47)
[2025-07-09] MEDS: MIRALAX 17 GRAMS PO (14:30)
--- NOTE | 2025-07-09 15:49 | CM ---
Met with patient at bedside
Pharmacy verified [facility] @ [address] [place] [address]
Lives with mother (age 80); one floor [employer]; bath has tub w/shower
PLOF: was independent with ambulation, stairs and ADLs; driving; working
NO SNF utilization history
Recent Home Health with [facility]; agreeable to resume HH services
Mother will transport home
Plan: discharge to home when stable with resumption of [facility] Services
[2025-07-09] MEDS: VISBIOME 1 CAP PO (16:49)
[2025-07-09 23:09] VITALS: BP 100/69
[2025-07-10] MEDS: ZOSYN 50 IV ×4 (04:18→21:34)
[2025-07-10] MEDS: VANCOCIN 150 IV (05:35)
[2025-07-10] MEDS: SYNTHROID 75 MCG PO (05:51)
[2025-07-10 06:00] VITALS: BMI 24.1
[2025-07-10 06:22] LABS: Hematocrit 31.0 % (37.0-47.0); Hemoglobin 10.4 g/dL (12.0-16.0); Mean Corp Hgb Conc. 33.5 g/dL (33.0-37.0); Mean Corpuscular Volume 98.4 fL (81.0-99.0); Nucleated Red Blood Cells % 0 %; Platelet Count 305 10^3/uL (130-400); Red Cell Dist. Width 13.8 % (11.5-14.5)
[2025-07-10 06:38] LABS: Blood Urea Nitrogen 10 mg/dl (7-17); Calcium 9.1 mg/dl (8.4-10.2); Carbon Dioxide 28 mmol/L (22-30); Chloride 105 mmol/L (98-107); Estimated Creatinine Clearance 76 ml/min; Glucose 82 mg/dl (70-99); Potassium 4.3 mmol/L (3.5-5.1); Sodium 134 mmol/L (135-145); eGFR > 60.00
[2025-07-10 07:20] VITALS: BP 114/79
[2025-07-10] MEDS: NEURONTIN 300 MG PO ×3 (08:04→21:34)
[2025-07-10] MEDS: SENOKOT-S 1 TABLET PO (08:04)
[2025-07-10] MEDS: ZESTRIL 5 MG PO (08:04)
[2025-07-10] MEDS: CYMBALTA DELAYED RELEASE 20 MG PO (08:04)
[2025-07-10] MEDS: VISBIOME 1 CAP PO (08:04)
[2025-07-10] MEDS: MIRALAX 17 GRAMS PO (08:05)
--- NOTE | 2025-07-10 08:57 | PHA.VAN.FU ---
Vancomycin Assessment / Plan
- Assessment
Renal Function: Stable
WBC's are: Stable
In the past 24 hrs, patient has been: Afebrile
Concomitant Antimicrobials: piperacillin/tazobactam
- Dosing Plan
Continue: Vanc 750mg Q12H
- Monitoring Plan
No level(s) ordered at this time: consider levels in next few days
- Follow Up
Pharmacy will continue to follow.
Vancomycin Follow UP
- -
Patient Age: 44
Patient Sex: Female
Vancomycin Day #: 3
Indication: Skin And Soft Tissue
Requesting Provider: Dr. Velazquez
Pertinent Antimicrobial Allergies:
No known drug allergies
Height / Weight:
Height 5 ft 3 in
Actual Weight 61.779 kg
Pertinent Past Medical History: Breast cancer s/p bilateral mastectomy
- Vital Signs / Lab Results
Temp Pulse Resp BP Pulse Ox
98.7 F 95 16 114/79 99
07/10/25 07:20 07/10/25 07:20 07/10/25 07:20 07/10/25 07:20 07/10/25 07:20
Lab Results - Hematology
07/08/25 07/09/25 07/10/25
17:37 08:21 05:46
WBC 14.9 H 11.6 H 11.6 H
Lab Results - Chemistry
07/08/25 07/09/25 07/10/25
17:37 08:21 05:46
BUN 11 9 10
Creatinine 0.8 0.7 0.8
Estimated Creat Clear 76 87 76
Albumin 4.3
07/08/25
17:37
Lactic Acid 1.9
Microbiology Results
07/09/25 13:15 Body Fluid Culture - Preliminary
Fluid Gram negative bacilli
Gram Stain - Preliminary
07/08/25 18:23 Blood Culture - Preliminary
Blood/Venous No Growth in 24 hours- Final report to follow
07/08/25 17:37 Blood Culture - Preliminary
Blood/Venous No Growth in 24 hours- Final report to follow
07/09/25 13:15 Gram Stain - Preliminary
Fluid
--- NOTE | 2025-07-10 11:46 | W.PN.HOSP.TC ---
Today's Communication/Plan
-
Monitor vital signs see plan
Follow cultures
ID to evaluate
Continue empiric antibiotics
Monitor leukocytosis
Assessment / Plan
Assessment / Plan
General: No acute distress
HEENT: Moist mucous membranes and PERRLA
Respiratory: Clear; No Wheezes, Rales or Rhonchi
Cardiac: S1/S2 and Tachycardia; No Murmur
Breast: Other (Post-surgical changes with scabbing at incision sites. Surrounding erythema and induration with tenderness. MARINO drains in place with scant serosanguinous drainage.)
GI: Soft, Non Tender, Non Distended and Normal Bowel Sounds
Musculoskeletal: No Edema
Neuro: AO x 3
Post-Op Wound Infection with breast cellulitis
-empiric Abx with Vanco / Zosyn for now. Narrow when has more data
- Status post bilateral periprosthetic fluid culture, pending
- CT Chest did not show any discrete collection/abscess. Mild bibasilar atelectasis versus scarring.
- Plastic Surgery following. Requested ID evaluation. ID consulted
- Supportive care with pain control, IVF, antipyretics, etc.
Monitor leukocytosis
Tachycardia
- Likely secondary to pain + fever.
- IVF support, antipyretics and pain control.
- Follow for improvement.
Hyponatremia
monitor
Constipation
Laxatives
Resolved
Benign Hypertension
- Stable. Continue lisinopril with holding parameters.
Hypothyroidism
- Stable. Continue T4 replacement.
DVT Prophylaxis: SCDs; pharm ppx if ok with plastics
Code Status: Full
Anticipated Discharge: > 48 hours
Subjective/Interval History
-
Date of Service: July 10, 2025
Denies nausea
Objective Data
-
Labs:
Laboratory Results
07/10/25
05:46
WBC 11.6 H
Hgb 10.4 L
Hct 31.0 L
Plt Count 305
Sodium 134 L
Potassium 4.3
Chloride 105
Carbon Dioxide 28
BUN 10
Creatinine 0.8
Glucose 82
Calcium 9.1
Vital Signs:
Vital Signs
Temp Pulse Resp BP Pulse Ox
98.7 F 95 16 114/79 99
07/10/25 07:20 07/10/25 07:20 07/10/25 07:20 07/10/25 07:20 07/10/25 07:20
I&O
07/09/25 07/10/25 07/11/25
06:59 06:59 06:59
Intake Total 1270 / 1270 1650 / 1650
Output Total 170 / 170 115 / 115
Balance 1100 / 1100 1535 / 1535
[2025-07-10] MEDS: TYLENOL 650 MG PO ×2 (13:27→18:41)
--- NOTE | 2025-07-10 15:14 | CON.ID ---
Consultation
-
Date/Time Consultation Requested: 07/10/2024 0849
Date/Time Consultation Performed: 07/10/2025 1514
Requesting Provider: Dr. Torres
Performing Provider: Dr. Stokes
Reason for Consultation: chest SSTI
Chief Complaint / Past History
History of Present Illness
Rosalina Thomas is a 44-year-old female with a significant past medical history of left breast cancer being evaluated in the Infectious Disease consultation at the request of Dr. Torres regarding possible cellulitis. History is obtained from chart
review, along with patient interview.
The patient underwent bilateral nipple sparing mastectomies, right sentinel lymph node mapping and biopsy on 06/28/2025. She presents back to the emergency room on 07/08/2024 after increasing pain and swelling of her right breast. She was seen
and evaluated by Plastic Surgery on 07/07 in the office and was noted to have some scabbing and was advised to go to the ER if things got worse. The next day she developed fever to 102 degrees and thus she presented to the ER. In the ER she was
found to have a leukocytosis which has persisted but is trending down. She has been afebrile since admission. Fluid cultures from aspiration around the spacer is now growing gram-negative rods. Infectious Diseases is asked to comment upon further
antimicrobial management.
At this time, she reports that breast discomfort is improved. She also believes that there has been improved erythema of the right lateral breast area. She denies any nausea, vomiting or abdominal pain.
Past History
Additional Past Medical History:
HTN
Hypothyroidism
Left breast cancer (invasive ductal carcinoma)
Additional Past Surgical History:
Bilateral mastectomy
Hx breast reduction (2003)
D&C
Left knee arthroscopy
Allergy History:
No Known Allergies Allergy (Verified 06/27/25 13:30)
Medications Reviewed: Yes
Current Antibiotics:
Zosyn 3.375 g IV every 6 hours
Vancomycin 750 mg IV every 12 hours
Social History
Tobacco: Non-Smoker
Alcohol: None
Drug: None
Review of Systems
Vital Signs
Temp Pulse Resp BP Pulse Ox
98.7 F 95 16 114/79 99
07/10/25 07:20 07/10/25 07:20 07/10/25 07:20 07/10/25 07:20 07/10/25 07:20
Physical Exam
Physical Exam
Constitutional: No Acute Distress, Comfortable and Non-toxic
Eyes: No Conjunctival Hemorrhage and Sclera Anicteric
Cardiovascular: Regular Rate and S1/S2; Negative S3/S4
Pulmonary: Clear; Negative Wheezes, Rales or Rhonchi
Gastrointestinal: Soft, Non Tender, Non Distended and Normal Bowel Sounds
Wound: Other (Inferior aspect of bilateral breasts with erythema. MARINO drains in place with serosanguineous fluid.)
Neurological: Awake and Alert
Psychological: Calm
.
Lab / Diagnostic Study Results
07/10/25 05:46
07/10/25 05:46
Abs Immat Gran (auto) 0.1 10^3/uL (0-0.05) H 07/10/25 05:46
Absolute Neuts (auto) 8.8 10^3/uL (1.4-6.5) H 07/10/25 05:46
Absolute Lymphs (auto) 1.7 10^3/uL (1.2-3.4) 07/10/25 05:46
Absolute Monos (auto) 0.8 10^3/uL (0.1-0.6) H 07/10/25 05:46
Absolute Basos (auto) 0.1 10^3/uL (0-0.2) 07/10/25 05:46
Immature Gran % 0.5 % (0-0.5) 07/10/25 05:46
Neutrophils % 76.1 % (42.2-75.2) H 07/10/25 05:46
Lymphocytes % 14.3 % (20.5-51.1) L 07/10/25 05:46
Monocytes % 6.7 % (1.7-9.3) 07/10/25 05:46
Eosinophils % 2.0 % (0-6) 07/10/25 05:46
Basophils % 0.4 % (0-2) 07/10/25 05:46
Lactic Acid 1.9 mmol/L (0.7-2.0) 07/08/25 17:37
Microbiology Results
Micro:
07/09/25 13:15 Body Fluid Culture - Preliminary
Fluid Gram negative bacilli
Gram Stain - Preliminary
07/09/25 13:15 Body Fluid Culture - Preliminary
Fluid Gram negative bacilli
Gram Stain - Preliminary
07/08/25 18:23 Blood Culture - Preliminary
Blood/Venous No Growth in 24 hours- Final report to follow
07/08/25 17:37 Blood Culture - Preliminary
Blood/Venous No Growth in 24 hours- Final report to follow
Imaging:
07/08/2025 CT chest with IV contrast: no acute disease in the chest. Bilateral mastectomies with postsurgical changes noted. Mild bibasilar atelectasis versus scarring. Please see full dictation for additional detail. Film personally viewed.
Assessment / Plan
S/p bilateral nipple sparing mastectomies with spacer placement (06/27/25)
Suspected spacer infection
- Cultures with gram-negative rods
Fever
Breast pain
Leukocytosis
HTN
Hypothyroidism
Left breast cancer (invasive ductal carcinoma)
Recommendations:
Periprosthetic fluid cultures with gram-negative rods.
Continue with empiric Zosyn.
Discontinue further Vanco.
Likely will need removal of tissue expanders.
Await final culture data to guide further antimicrobial selection and potential de-escalation.
[2025-07-10 15:30] VITALS: BP 109/73
--- NOTE | 2025-07-10 15:42 | W.PN.PLAS ---
Today's Communication
-
NPO at midnight
possible explant, bilateral, tomorrow
Progress Note
Subjective Data
Doing well
Denies SOB
Persistent redness reported. She desires consideration of explant to avoid ongoing issues with infection.
Objective Data
Vital Signs
Temp Pulse Resp BP Pulse Ox
98.6 F 100 16 109/73 98
07/10/25 15:30 07/10/25 15:30 07/10/25 15:30 07/10/25 15:30 07/10/25 15:30
Intake and Output
07/09/25 07/10/25 07/11/25
06:59 06:59 06:59
Intake Total 1270 / 1270 1650 / 1650
Output Total 170 / 170 115 / 115
Balance 1100 / 1100 1535 / 1535
Intake:
Oral fluids 120 / 120 600 / 600
Amount of oral supplement(s) 50 / 50
consumed
IV fluids (Total) 1000 / 1000 1000 / 1000
IV piggybacks 150 / 150
Output:
Drain Output (Total) 170 / 170 115 / 115
Breast Thom-Noonan C 50 / 50 65 / 65
Breast Thom-Noonan D 120 / 120 50 / 50
Other:
Number of approximated MODERATE 2
amounts of urine
Lab Results
07/10/25 05:46
07/10/25 05:46
PEx:
NAD
No increased WOB
s/p bilateral nipple sparing mastectomy
Mild blistering inferiourly, b/l
Erythema laterally, b/l
Drains serosanguinous with appropriate output
Microbiology Results
07/09/25 13:15 Fluid Body Fluid Culture - Preliminary
Gram negative bacilli
07/09/25 13:15 Fluid Gram Stain - Preliminary
07/09/25 13:15 Fluid Body Fluid Culture - Preliminary
Gram negative bacilli
07/09/25 13:15 Fluid Gram Stain - Preliminary
07/08/25 18:23 Blood/Venous Blood Culture - Preliminary
No Growth in 24 hours- Final report to follow
07/08/25 17:37 Blood/Venous Blood Culture - Preliminary
No Growth in 24 hours- Final report to follow
Assessment / Plan
Bilateral cellulitis after mstx and Laura recon. C/f periprosthetic infection
Culture data positive bilaterally for gram negative bacilli. Unusual to have this occur bilaterally. ID consulted and awaiting recommendations.
Patient interested in explant of bilateral tissue expanders to avoid ongoing infectious risks. Will try to schedule for tomorrow based on OR availaibilty.
NPO at midnight
[2025-07-10] MEDS: SENOKOT-S PO (21:34)
[2025-07-10] MEDS: LR IV (21:35)
[2025-07-10] MEDS: ROXICODONE 5 MG PO (21:45)
[2025-07-10 23:09] VITALS: BP 97/65
[2025-07-11] MEDS: ZOSYN 50 IV ×2 (05:00→10:16)
[2025-07-11] MEDS: SYNTHROID 75 MCG PO (05:00)
[2025-07-11 06:29] LABS: Hematocrit 31.7 % (37.0-47.0); Hemoglobin 10.5 g/dL (12.0-16.0); Mean Corp Hgb Conc. 33.1 g/dL (33.0-37.0); Mean Corpuscular Volume 101.0 fL (81.0-99.0); Nucleated Red Blood Cells % 0 %; Platelet Count 311 10^3/uL (130-400); Red Cell Dist. Width 13.8 % (11.5-14.5)
[2025-07-11 06:48] LABS: Blood Urea Nitrogen 12 mg/dl (7-17); Calcium 8.6 mg/dl (8.4-10.2); Carbon Dioxide 27 mmol/L (22-30); Chloride 105 mmol/L (98-107); Estimated Creatinine Clearance 76 ml/min; Glucose 83 mg/dl (70-99); Potassium 3.9 mmol/L (3.5-5.1); Sodium 140 mmol/L (135-145); eGFR > 60.00
[2025-07-11 07:45] VITALS: BP 106/78
[2025-07-11] MEDS: ZESTRIL 5 MG PO (07:54)
[2025-07-11] MEDS: SENOKOT-S 1 TABLET PO ×2 (07:54→20:19)
[2025-07-11] MEDS: CYMBALTA DELAYED RELEASE 20 MG PO (07:55)
[2025-07-11] MEDS: NEURONTIN 300 MG PO ×3 (07:55→20:19)
[2025-07-11] MEDS: MIRALAX PO (07:55)
[2025-07-11] MEDS: VISBIOME 1 CAP PO (07:55)
--- NOTE | 2025-07-11 08:58 | CHAP ---
As requested, Ms. Thomas [facility]
--- NOTE | 2025-07-11 09:13 | PTCARENOTE ---
pt aaox3. states no pain or sob. redness and slight swelling noted on right and left breast r>L. pt states it looks better than when she arrived. drains intact
--- NOTE | 2025-07-11 11:23 | W.PN.PLAS ---
Today's Communication
-
NPO at midnight tonight
OR tomorrow AM
Progress Note
Subjective Data
Doing well today
Feels much better
persistent redness despite IV therapy
Culture data showing klebsiella
Objective Data
Vital Signs
Temp Pulse Resp BP Pulse Ox
98.3 F 90 16 106/78 100
07/11/25 07:45 07/11/25 07:54 07/11/25 07:45 07/11/25 07:54 07/11/25 07:45
Intake and Output
07/10/25 07/11/25 07/12/25
06:59 06:59 06:59
Intake Total 1650 / 1650 1110 / 1110
Output Total 115 / 115 95 / 95
Balance 1535 / 1535 1015 / 1015
Intake:
Oral fluids 600 / 600 960 / 960
Amount of oral supplement(s) 50 / 50
consumed
IV fluids (Total) 1000 / 1000 50 / 50
IV piggybacks 100 / 100
Output:
Drain Output (Total) 115 / 115 95 / 95
Breast Thom-Noonan C 65 / 65 50 / 50
Breast Thom-Noonan D 50 / 50 45 / 45
Other:
Number of approximated SMALL 2
amounts of urine
Number of approximated MODERATE 2 1
amounts of urine
PEX:
NAD
No increased WOB
Bilateral expanders in place
MARINO drains with thick serosanguinous output
Persistent erythema of the lateral mastectomy skin b/l
No appreciable undrained collections
Lab Results
07/11/25 05:55
07/11/25 05:55
Microbiology Results
07/09/25 13:15 Fluid Body Fluid Culture - Final
Klebsiella aerogenes
07/09/25 13:15 Fluid Gram Stain - Final
07/09/25 13:15 Fluid Body Fluid Culture - Final
Klebsiella aerogenes
07/09/25 13:15 Fluid Gram Stain - Final
07/08/25 18:23 Blood/Venous Blood Culture - Preliminary
No Growth in 48 hours- Final report to follow
07/08/25 17:37 Blood/Venous Blood Culture - Preliminary
No Growth in 48 hours- Final report to follow
Assessment / Plan
Bilateral cellulitis after mstx and Laura recon. C/f periprosthetic infection, growing klebsiella.
ID on board, on culture directed IV abx without resolution of erythema
OR availability unlikely today per OR admin/staff. Patient is stable and not septic. Will schedule bilateral explant for first thing tomorrow AM
OKay to eat now, NPO at midnight tonight
--- NOTE | 2025-07-11 12:23 | W.PN.HOSP.TC ---
Today's Communication/Plan
-
monitor vitals
see plan
cw abx
follow cx
NPO past midnight for OR tomorrow
pain control
lovenox for DVT ppx
Assessment / Plan
Assessment / Plan
General: No acute distress
HEENT: Moist mucous membranes and PERRLA
Respiratory: Clear; No Wheezes, Rales or Rhonchi
Cardiac: S1/S2 and Tachycardia; No Murmur
Breast: Other (Post-surgical changes with scabbing at incision sites. Surrounding erythema)
GI: Soft, Non Tender, Non Distended and Normal Bowel Sounds
Musculoskeletal: No Edema
Neuro: AO x 3
Post-Op Wound Infection with breast cellulitis with concern for periprosthetic infection
Now on empiric Zosyn
Plastic surgery following, plan for OR tomorrow
- bilateral periprosthetic fluid culture growing klebsiella
- CT Chest did not show any discrete collection/abscess. Mild bibasilar atelectasis versus scarring.
- Plastic Surgery following. ID following
- Supportive care with pain control, IVF, antipyretics, etc.
Monitor leukocytosis
Tachycardia
- Likely secondary to pain + fever.
- IVF support, antipyretics and pain control.
- Follow for improvement.
Hyponatremia
monitor
Constipation
Laxatives
Resolved
Benign Hypertension
- Stable. Continue lisinopril with holding parameters.
Hypothyroidism
- Stable. Continue T4 replacement.
DVT Prophylaxis: lovenox; discussed with plastics
Code Status: Full
Anticipated Discharge: > 48 hours
Subjective/Interval History
-
Date of Service: July 11, 2025
has some discomfort
Objective Data
-
Labs:
Laboratory Results
07/11/25
05:55
WBC 9.6
Hgb 10.5 L
Hct 31.7 L
Plt Count 311
Sodium 140
Potassium 3.9
Chloride 105
Carbon Dioxide 27
BUN 12
Creatinine 0.8
Glucose 83
Calcium 8.6
Vital Signs:
Vital Signs
Temp Pulse Resp BP Pulse Ox
98.3 F 90 16 106/78 100
07/11/25 07:45 07/11/25 07:54 07/11/25 07:45 07/11/25 07:54 07/11/25 07:45
I&O
07/10/25 07/11/25 07/12/25
06:59 06:59 06:59
Intake Total 1650 / 1650 1110 / 1110
Output Total 115 / 115 95 / 95
Balance 1535 / 1535 1015 / 1015
--- NOTE | 2025-07-11 12:37 | CM ---
Chart reviewed. Not ready for dc at this time . Will continue to follow up for DCP needs. [facility] is following up for resumption of care
--- NOTE | 2025-07-11 13:20 | W.PN.ID1 ---
Date of Service
Date of Service: July 11, 2025
Today's Communication
start ceftriaxone stop zosyn
Assessment / Plan
S/p bilateral nipple sparing mastectomies with spacer placement (06/27/25)
Spacer infection
Fever
Breast pain
Leukocytosis
HTN
Hypothyroidism
Left breast cancer (invasive ductal carcinoma)
Recommendations:
Bilateral Periprosthetic fluid cultures with Klebsiella
Start ceftriaxone, stop zosyn
Likely will need removal of tissue expanders.
For the OR tomorrow
Pt reports there is a plan for discharge monday
Chief Complaint
-: Other (surgical site infection)
Subjective / Review of Systems
afebrile
bp stable
pt reports improving bilateral breast erythema
Vital Signs / Physical Exam
Vital Signs
Vital Signs
Temp Pulse Resp BP Pulse Ox
98.3 F 90 16 106/78 100
07/11/25 07:45 07/11/25 07:54 07/11/25 07:45 07/11/25 07:54 07/11/25 07:45
Physical Exam
Constitutional: No Acute Distress
Cardiovascular: Regular Rate and S1/S2; Negative Murmur or Rub
Pulmonary: Clear and Symmetric; Negative Wheezes or Rales
Gastrointestinal: Soft, Non Tender, Non Distended and Normal Bowel Sounds
Skin: Warm, Dry and Rash (right breast erythema, mild warmth, surgical sites bilateral inferior breasts with eschars); Negative Jaundice
Objective Data
Lab Data
Lab Results
07/11/25 05:55
07/11/25 05:55
Estimated Creat Clear 76 ml/min 07/11/25 05:55
Lactic Acid 1.9 mmol/L (0.7-2.0) 07/08/25 17:37
Total Bilirubin 0.5 mg/dl (0.2-1.3) 07/08/25 17:37
AST 29 U/L (14-36) 07/08/25 17:37
ALT 19 U/L (0-35) 07/08/25 17:37
Alkaline Phosphatase 67 U/L (38-126) 07/08/25 17:37
Most recent labs reviewed.
Micro Results:
07/09/25 13:15 Body Fluid Culture - Final
Fluid - left breast Klebsiella aerogenes
Gram Stain - Final
07/09/25 13:15 Body Fluid Culture - Final
Fluid - right breast Klebsiella aerogenes
Gram Stain - Final
07/08/25 18:23 Blood Culture - Preliminary
Blood/Venous No Growth in 48 hours- Final report to follow
07/08/25 17:37 Blood Culture - Preliminary
Blood/Venous No Growth in 48 hours- Final report to follow
Fluid Cult/not urine Final 07/11/25
Moderate Klebsiella aerogenes
Organism 1 Klebsiella aerogenes
1. Klebsiella aerogenes
M.I.C. RX
--------- ---
Amoxicillin/Potas. Clavulanate >16/8 R
Ampicillin >16 R
Ampicillin/Sulbactam 8/4 R
Aztreonam <=4 S
Cefazolin >16 R
Cefepime <=2 S
Ceftazidime <=1 S
Ceftriaxone <=1 S
Ertapenem <=0.5 S
Ciprofloxacin <=0.25 S
Gentamicin <=2 S
Meropenem <=1 S
Piperacillin/Tazobactam <=8 S
Tetracycline <=4 S
Tobramycin <=2 S
Trimethoprim/Sulfamethoxazole <=2/38 S
Imaging:
07/08/2025 CT chest with IV contrast: no acute disease in the chest. Bilateral mastectomies with postsurgical changes noted. Mild bibasilar atelectasis versus scarring. Please see full dictation for additional detail. Film personally viewed.
[2025-07-11] MEDS: STERILE WATER FOR INJECTION 20 ML IV (14:05)
[2025-07-11] MEDS: ROCEPHIN 2000 MG IV (14:05)
[2025-07-11 15:10] VITALS: BP 134/74
[2025-07-11] MEDS: LOVENOX 40 MG SC (16:07)
[2025-07-11] MEDS: ROXICODONE 5 MG PO (20:18)
[2025-07-11] MEDS: MELATONIN 5 MG PO (20:18)
[2025-07-11 22:19] VITALS: BP 114/79
[2025-07-12] VITALS (7 sets, daily range): BP systolic 5–126; BP diastolic 58–89; BMI 23.6
[2025-07-12] MEDS: SYNTHROID PO (05:14)
[2025-07-12 06:29] LABS: Hematocrit 33.3 % (37.0-47.0); Hemoglobin 10.8 g/dL (12.0-16.0); Mean Corp Hgb Conc. 32.4 g/dL (33.0-37.0); Mean Corpuscular Volume 99.1 fL (81.0-99.0); Nucleated Red Blood Cells % 0 %; Platelet Count 346 10^3/uL (130-400); Red Cell Dist. Width 13.7 % (11.5-14.5)
[2025-07-12 06:56] LABS: Blood Urea Nitrogen 13 mg/dl (7-17); Calcium 9.2 mg/dl (8.4-10.2); Carbon Dioxide 27 mmol/L (22-30); Chloride 104 mmol/L (98-107); Estimated Creatinine Clearance 76 ml/min; Glucose 84 mg/dl (70-99); Potassium 4.7 mmol/L (3.5-5.1); Sodium 136 mmol/L (135-145); eGFR > 60.00
[2025-07-12] MEDS: CYMBALTA DELAYED RELEASE 20 MG PO (08:44)
[2025-07-12] MEDS: NEURONTIN 300 MG PO ×3 (08:44→21:21)
--- NOTE | 2025-07-12 09:22 | W.PN.ID1 ---
Addendum entered and electronically signed by Claudia Pereyra MD 07/12/25 12:48:
Per nurse, pt with poor IV access. Pt refuses IV abx via hand periph IV.
DC cefepime.
Unable to use cipro, due to drug-drug interaction with duloxetine.
Asked micro to test for levofloxacin susceptibility.
Start levofloxacin 750mg po qd for now.
Check QTc.
Original Note:
Date of Service
Date of Service: July 12, 2025
Today's Communication
Replace ceftriaxone with cefepime.
Assessment / Plan
S/p bilateral nipple sparing mastectomies with spacer placement (06/27/25)
Spacer infection
Fever
Breast pain
Leukocytosis
HTN
Hypothyroidism
Left breast cancer (invasive ductal carcinoma)
Recommendations:
Bilateral Periprosthetic fluid cultures with Klebsiella aerogenes.
K. aerogenes tends to carry inducible AmpC resistance from CTX.
DC ceftriaxone.
Ordered cefepime 1g IV q6.
For tissue expanders removal today.
At time of dc, can transition to po cipro or Bactrim.
Chief Complaint
-: Other (surgical site infection)
Subjective / Review of Systems
About to go to OR. No new complaints.
Vital Signs / Physical Exam
Vital Signs
Vital Signs
Temp Pulse Resp BP Pulse Ox
98.1 F 93 16 113/75 98
07/12/25 07:20 07/12/25 07:20 07/12/25 07:20 07/12/25 07:20 07/12/25 07:20
Physical Exam
Constitutional: No Acute Distress and Comfortable
Eyes: No Conjunctival Hemorrhage
Cardiovascular: Regular Rate and S1/S2
Pulmonary: Clear
Gastrointestinal: Soft, Non Tender, Non Distended and Normal Bowel Sounds
Extremities: Negative Edema
Wound: Other (Inferior aspect of bilateral breasts with erythema R>L. MARINO drains in place with serosanguineous fluid.)
Neurological: AO x 3
Objective Data
Lab Data
Lab Results
07/12/25 05:57
07/12/25 05:57
Estimated Creat Clear 76 ml/min 07/12/25 05:57
Lactic Acid 1.9 mmol/L (0.7-2.0) 07/08/25 17:37
Total Bilirubin 0.5 mg/dl (0.2-1.3) 07/08/25 17:37
AST 29 U/L (14-36) 07/08/25 17:37
ALT 19 U/L (0-35) 07/08/25 17:37
Alkaline Phosphatase 67 U/L (38-126) 07/08/25 17:37
Most recent labs reviewed.
Micro Results:
07/08/25 18:23 Blood Culture - Preliminary
Blood/Venous No Growth in 72 hours- Final report to follow
07/08/25 17:37 Blood Culture - Preliminary
Blood/Venous No Growth in 72 hours- Final report to follow
07/09/25 13:15 Body Fluid Culture - Final
Fluid Klebsiella aerogenes
Gram Stain - Final
07/09/25 13:15 Body Fluid Culture - Final
Fluid Klebsiella aerogenes
Gram Stain - Final
Imaging:
07/08/2025 CT chest with IV contrast: no acute disease in the chest. Bilateral mastectomies with postsurgical changes noted. Mild bibasilar atelectasis versus scarring. Please see full dictation for additional detail. Film personally viewed.
Care Review
Plan reviewed with: Physician (Dr. Mariann Torres)
--- NOTE | 2025-07-12 09:37 | W.SUR.PREOP ---
Pre-Operative Surgical Note
-
I have examined this patient prior to the performance of the scheduled procedure.
The patient's condition is unchanged from the time of the current History and
Physical and the patient is able to undergo the scheduled procedure.
--- NOTE | 2025-07-12 09:37 | W.PN.PLAS ---
Progress Note
Subjective Data
Patient doing well
Persistent erythema despite IV antibiotics
Objective Data
Vital Signs
Temp Pulse Resp BP Pulse Ox
98.1 F 93 16 113/75 98
07/12/25 07:20 07/12/25 07:20 07/12/25 07:20 07/12/25 07:20 07/12/25 07:20
Intake and Output
07/11/25 07/12/25 07/13/25
06:59 06:59 06:59
Intake Total 1110 / 1110 960 / 960
Output Total 95 / 95 100 / 100
Balance 1015 / 1015 860 / 860
Intake:
Oral fluids 960 / 960 960 / 960
IV fluids (Total) 50 / 50
IV piggybacks 100 / 100
Output:
Drain Output (Total) 95 / 95 100 / 100
Breast Thmo-Noonan C 50 / 50 50 / 50
Breast Thom-Noonan D 45 / 45 50 / 50
Other:
Number of approximated SMALL 2
amounts of urine
Number of approximated MODERATE 1 1
amounts of urine
Physical exam:
No acute distress
No increased work of breathing
Bilateral tissue splints in place
Some delayed wound healing and skin margins
Persistent erythema of the lateral mastectomy skin flap bilaterally
Drains with thick serosanguineous output
Lab Results
07/12/25 05:57
07/12/25 05:57
Microbiology Results
07/08/25 18:23 Blood/Venous Blood Culture - Preliminary
No Growth in 72 hours- Final report to follow
07/08/25 17:37 Blood/Venous Blood Culture - Preliminary
No Growth in 72 hours- Final report to follow
07/09/25 13:15 Fluid Body Fluid Culture - Final
Klebsiella aerogenes
07/09/25 13:15 Fluid Gram Stain - Final
07/09/25 13:15 Fluid Body Fluid Culture - Final
Klebsiella aerogenes
07/09/25 13:15 Fluid Gram Stain - Final
Assessment / Plan
Plan for bilateral carcass washer removal and capsulectomy. Persistent infection refractory to IV antibiotics
ID consulted and following
We discussed removal of the bilateral expanders. This will ensure that she goes on to heal without further infectious sequela. She can get reconstruction in a delayed fashion if desired. She is amenable this plan and wants to minimize
complications moving forward. Consents were obtained accordingly. Her mother was present for the conversation.
--- NOTE | 2025-07-12 11:15 | W.PN.HOSP.TC ---
Today's Communication/Plan
-
Monitor vital signs see plan
Plan for OR today
Continue with antibiotics per infectious disease
Assessment / Plan
Assessment / Plan
General: No acute distress
HEENT: Moist mucous membranes and PERRLA
Respiratory: Clear; No Wheezes, Rales or Rhonchi
Cardiac: S1/S2 and Tachycardia
Breast: Other (Surrounding erythema)
GI: Soft, Non Tender, Non Distended and Normal Bowel Sounds
Musculoskeletal: No Edema
Neuro: AO x 3
Post-Op Wound Infection with breast cellulitis with concern for periprosthetic infection
Now on cefepime
Plastic surgery following, plan for OR 07/12
- bilateral periprosthetic fluid culture growing klebsiella
- CT Chest did not show any discrete collection/abscess. Mild bibasilar atelectasis versus scarring.
- Plastic Surgery following. ID following
- Supportive care with pain control, IVF, antipyretics, etc.
Monitor leukocytosis
Tachycardia
Resolved
- Likely secondary to pain + fever.
- IVF support, antipyretics and pain control.
- Follow for improvement.
Hyponatremia
Resolved
Constipation
Laxatives
Resolved
Benign Hypertension
- Stable. Continue lisinopril with holding parameters.
Hypothyroidism
- Stable. Continue T4 replacement.
DVT Prophylaxis: lovenox; discussed with plastics
Code Status: Full
Anticipated Discharge: > 48 hours
Subjective/Interval History
-
Date of Service: July 12, 2025
Denies pain
Objective Data
-
Labs:
Laboratory Results
07/12/25
05:57
WBC 10.5
Hgb 10.8 L
Hct 33.3 L
Plt Count 346
Sodium 136
Potassium 4.7
Chloride 104
Carbon Dioxide 27
BUN 13
Creatinine 0.8
Glucose 84
Calcium 9.2
Vital Signs:
Vital Signs
Temp Pulse Resp BP Pulse Ox
98.1 F 93 16 113/75 98
07/12/25 07:20 07/12/25 07:20 07/12/25 07:20 07/12/25 07:20 07/12/25 07:20
I&O
07/11/25 07/12/25 07/13/25
06:59 06:59 06:59
Intake Total 1110 / 1110 960 / 960
Output Total 95 / 95 100 / 100
Balance 1015 / 1015 860 / 860
--- NOTE | 2025-07-12 11:44 | OR.RPT ---
Operative Report
Operative Report
Date of surgery: 07/12/2025
Surgeon: TYLER Lincoln MD
Preoperative diagnosis:
1. History of breast cancer
2. 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
3. Cellulitis
Postoperative diagnosis: Same
Procedure:
1. Bilateral removal of tissue expanders, breast
2. Bilateral total capsulectomy
3. Debridement of fascia 15 x 15 cm, excisional
Anesthesia: General
Complications: None
EBL: 30 cc
Indications for procedure: Patient is a 45-year-old female known to me for history of breast cancer status post bilateral nipple sparing mastectomies. She had immediate reconstruction with tissue expanders with ADM insertion. She followed a
routine postoperative course save for an ill fitting bra which created some blistering at the inferior margins of the incisions. She developed increasing pain and fever and presented to the ED. She was admitted with a leukocytosis and placed on IV
antibiotics. She had a cellulitis of the bilateral lateral mastectomy skin flaps. Despite 3 days of IV antibiotic therapy, broad-spectrum, the erythema persisted. Furthermore a small periprosthetic fluid sample grew out positive culture. As such
a plan was made for bilateral removal of the tissue expanders and infectious disease was consulted. The ADM will need to be removed as well as was the indication for the capsulectomy
Procedure in detail: Patient was identified preoperatively and the surgical site was confirmed to be the bilateral breast. All questions were answered and consents were confirmed. Patient was taken back to the operating room placed upon the table.
Anesthesia was induced the patient was prepped and draped in the usual sterile fashion using ChloraPrep solution. Timeout for patient safety was performed was confirmed the preoperative antibiotics were administered and bilateral SCDs were in
place. Procedure began on the right breast with the recreation of the inframammary incision. Fluid was encountered and cultured. The consumer relations specialist was removed and a total capsulectomy was performed to remove all residual ADM. Debridement continued
with a combination of hydroperoxide and Betadine solution as well as cautery and a Metzenbaums scissor. After ensuring meticulous hemostasis, local blocks were performed and drains were placed and tunneled subcutaneously. Sutured in place with 2-0
Prolene. The wound was then closed in layers with a combination of Monocryl and nylon suture. Attention was then drawn to the left side where the exact same procedure was performed. Inframammary incision was recreated and the periprosthetic space
was encountered. Fluid was present. Cultures were taken. The consumer relations specialist was removed and a total capsulectomy was performed. The pocket was then debrided and a drain was left. Wound was then closed in layers. Patient tolerated procedure well
without complication. WERE correct at the end the case. She was extubated taken the PACU further care.
--- NOTE | 2025-07-12 11:46 | W.IMMPOSTOP ---
Surgical Immed Post Op Note
-
Primary Surgeon: TYLER Lincoln MD
Assisting Surgeon:
Pre-op Diagnosis: History of breast cancer
Post-op Diagnosis: Same
Procedure Performed: Bilateral removal of tissue expanders, total capsulectomies, debridement to fascia
Anesthesia Type: General
Specimen / Cultures: Right and left breast fluid and tissue cultures
Estimated Blood Loss: 30 cc
Complications: None
Operative Findings: As expected
--- NOTE | 2025-07-12 12:51 | W.PN.UPDATE ---
Update Note
Progress Note Update
Plastic Surgery Update:
Routine removal of bilateral expanders. Grossly unincorporated ADM. Cultures sent.
Would hope for an attempt of PO antibiotics considering all ADM and prosthetic has been removed.
[2025-07-12] MEDS: MIRALAX 17 GRAMS PO (13:23)
[2025-07-12] MEDS: ZESTRIL 5 MG PO (13:23)
[2025-07-12] MEDS: SENOKOT-S 1 TABLET PO ×2 (13:23→19:39)
[2025-07-12] MEDS: VISBIOME 1 CAP PO (13:23)
[2025-07-12] MEDS: LEVAQUIN 750 MG PO (13:27)
--- NOTE | 2025-07-12 15:21 | W.PN.UPDATE ---
Update Note
Progress Note Update
Patient now has IV access. Will start cefepime 1g IV q6.
Micro working on testing for levofloxacin susceptibility as potential outpt po regimen.
Cipro interacts with her duloxetine T/sulfa can increase K+ while on lisinopril
[2025-07-12] MEDS: MAXIPIME 1000 MG IV ×2 (15:42→21:22)
[2025-07-12] MEDS: STERILE WATER FOR INJECTION 10 ML IV ×2 (15:43→21:22)
[2025-07-12] MEDS: LOVENOX 40 MG SC (17:45)
[2025-07-12] MEDS: TYLENOL 650 MG PO (17:46)
[2025-07-12] MEDS: ROXICODONE 5 MG PO (21:24)
[2025-07-12] MEDS: MELATONIN 5 MG PO (21:32)
[2025-07-13] MEDS: MAXIPIME 1000 MG IV ×4 (03:11→21:36)
[2025-07-13] MEDS: STERILE WATER FOR INJECTION 10 ML IV ×4 (03:11→21:37)
[2025-07-13] MEDS: TYLENOL 650 MG PO ×3 (03:21→21:37)
[2025-07-13 03:27] VITALS: BP 94/61
[2025-07-13] MEDS: SYNTHROID 75 MCG PO (05:03)
[2025-07-13 05:27] VITALS: BMI 23.8
[2025-07-13 06:14] LABS: Hematocrit 30.1 % (37.0-47.0); Hemoglobin 10.1 g/dL (12.0-16.0); Mean Corp Hgb Conc. 33.6 g/dL (33.0-37.0); Mean Corpuscular Volume 99.7 fL (81.0-99.0); Nucleated Red Blood Cells % 0 %; Platelet Count 319 10^3/uL (130-400); Red Cell Dist. Width 13.5 % (11.5-14.5)
[2025-07-13 06:34] LABS: Blood Urea Nitrogen 16 mg/dl (7-17); Calcium 8.8 mg/dl (8.4-10.2); Carbon Dioxide 26 mmol/L (22-30); Chloride 107 mmol/L (98-107); Estimated Creatinine Clearance 76 ml/min; Glucose 97 mg/dl (70-99); Potassium 4.2 mmol/L (3.5-5.1); Sodium 137 mmol/L (135-145); eGFR > 60.00
[2025-07-13 07:15] VITALS: BP 112/78
[2025-07-13] MEDS: MIRALAX 17 GRAMS PO (07:58)
[2025-07-13] MEDS: NEURONTIN 300 MG PO ×3 (07:59→21:37)
[2025-07-13] MEDS: VISBIOME 1 CAP PO (07:59)
[2025-07-13] MEDS: CYMBALTA DELAYED RELEASE 20 MG PO (07:59)
[2025-07-13] MEDS: SENOKOT-S 1 TABLET PO (08:00)
[2025-07-13] MEDS: ZESTRIL 5 MG PO (08:02)
[2025-07-13 11:10] VITALS: BP 127/69
--- NOTE | 2025-07-13 11:57 | W.PN.HOSP.TC ---
Today's Communication/Plan
-
Monitor vital signs and see plan
Continue with antibiotics per infectious disease
Pain control
Hopeful discharge tomorrow
Monitor leukocytosis
Assessment / Plan
Assessment / Plan
General: No acute distress
HEENT: Moist mucous membranes and PERRLA
Respiratory: Clear; No Wheezes, Rales or Rhonchi
Cardiac: S1/S2,RRR
GI: Soft, Non Tender, Non Distended and Normal Bowel Sounds
Musculoskeletal: No Edema
Neuro: AO x 3
Post-Op Wound Infection with breast cellulitis with concern for periprosthetic infection
Now on cefepime. Discussed with infectious disease and they are trying to see if patient can eventually go on oral Levaquin
Plastic surgery following, s/p OR 07/12
- bilateral periprosthetic fluid culture growing klebsiella
- CT Chest did not show any discrete collection/abscess. Mild bibasilar atelectasis versus scarring.
- Plastic Surgery following. ID following
- Supportive care with pain control, antipyretics, etc.
Monitor leukocytosis
Tachycardia
Resolved
- Likely secondary to pain + fever.
- IVF support, antipyretics and pain control.
- Follow for improvement.
Hyponatremia
Resolved
Constipation
Laxatives
Resolved
Benign Hypertension
- Stable. Continue lisinopril with holding parameters.
Hypothyroidism
- Stable. Continue T4 replacement.
DVT Prophylaxis: lovenox; discussed with plastics
Code Status: Full
Anticipated Discharge: Within 24 hours
Subjective/Interval History
-
Date of Service: July 13, 2025
denies nausea
Objective Data
-
Labs:
Laboratory Results
07/13/25
06:02
WBC 11.6 H
Hgb 10.1 L
Hct 30.1 L
Plt Count 319
Sodium 137
Potassium 4.2
Chloride 107
Carbon Dioxide 26
BUN 16
Creatinine 0.8
Glucose 97
Calcium 8.8
Vital Signs:
Vital Signs
Temp Pulse Resp BP Pulse Ox
98.3 F 92 16 127/69 98
07/13/25 11:10 07/13/25 11:10 07/13/25 11:10 07/13/25 11:10 07/13/25 11:10
I&O
07/12/25 07/13/25 07/14/25
06:59 06:59 06:59
Intake Total 960 / 960 1510 / 1510
Output Total 100 / 100 160 / 160
Balance 860 / 860 1350 / 1350
[2025-07-13 15:00] VITALS: BP 118/81
--- NOTE | 2025-07-13 16:24 | W.PN.ID1 ---
Date of Service
Date of Service: July 13, 2025
Today's Communication
Continue cefepime for now.
Assessment / Plan
S/p bilateral nipple sparing mastectomies with spacer placement (06/27/25)
Bilateral spacer infection
Fever
Breast pain
Leukocytosis
HTN
Hypothyroidism
Left breast cancer (invasive ductal carcinoma)
Recommendations:
Bilateral Periprosthetic fluid cultures with Klebsiella aerogenes.
07/12/25 tissue expanders removed - noted significant infection. OR cx pending
K. aerogenes tends to carry inducible AmpC resistance from CTX.
Continue cefepime 1g IV q6 for now.
Micro working on testing for levofloxacin susceptibility as potential outpt po regimen. QTc 417
(Cipro interacts with her duloxetine. T/sulfa can increase K+ while on lisinopril)
Chief Complaint
-: Other (surgical site infection)
Subjective / Review of Systems
Doing well.
Vital Signs / Physical Exam
Vital Signs
Vital Signs
Temp Pulse Resp BP Pulse Ox
98.3 F 92 16 127/69 98
07/13/25 11:10 07/13/25 11:10 07/13/25 11:10 07/13/25 11:10 07/13/25 11:10
Physical Exam
Constitutional: No Acute Distress and Comfortable
Eyes: No Conjunctival Hemorrhage
Cardiovascular: Regular Rate and S1/S2
Pulmonary: Clear
Gastrointestinal: Soft, Non Tender, Non Distended and Normal Bowel Sounds
Extremities: Negative Edema
Neurological: AO x 3
Objective Data
Lab Data
Lab Results
07/13/25 06:02
07/13/25 06:02
Estimated Creat Clear 76 ml/min 07/13/25 06:02
Lactic Acid 1.9 mmol/L (0.7-2.0) 07/08/25 17:37
Total Bilirubin 0.5 mg/dl (0.2-1.3) 07/08/25 17:37
AST 29 U/L (14-36) 07/08/25 17:37
ALT 19 U/L (0-35) 07/08/25 17:37
Alkaline Phosphatase 67 U/L (38-126) 07/08/25 17:37
Most recent labs reviewed.
Micro Results:
07/12/25 09:37 Wound Culture - Pending
Breast - Left Gram Stain - Preliminary
07/12/25 09:37 Anaerobic Culture - Pending
Breast - Right
07/08/25 18:23 Blood Culture - Preliminary
Blood/Venous No Growth in 4 days- Final report to follow
07/08/25 17:37 Blood Culture - Preliminary
Blood/Venous No Growth in 4 days- Final report to follow
07/09/25 13:15 Body Fluid Culture - Preliminary
Fluid Klebsiella aerogenes
Gram Stain - Final
07/09/25 13:15 Body Fluid Culture - Final
Fluid Klebsiella aerogenes
Gram Stain - Final
Imaging:
07/08/2025 CT chest with IV contrast: no acute disease in the chest. Bilateral mastectomies with postsurgical changes noted. Mild bibasilar atelectasis versus scarring. Please see full dictation for additional detail. Film personally viewed.
Care Review
Plan reviewed with: Physician (Dr. Torres)
[2025-07-13] MEDS: LOVENOX 40 MG SC (18:07)
[2025-07-13] MEDS: SENOKOT-S PO (20:51)
[2025-07-13] MEDS: MELATONIN 5 MG PO (21:37)
[2025-07-13 23:00] VITALS: BP 107/71
[2025-07-14] MEDS: MAXIPIME 1000 MG IV (05:00)
[2025-07-14] MEDS: STERILE WATER FOR INJECTION 10 ML IV (05:00)
[2025-07-14] MEDS: SYNTHROID 75 MCG PO (05:03)
[2025-07-14 07:00] LABS: Hematocrit 32.9 % (37.0-47.0); Hemoglobin 10.4 g/dL (12.0-16.0); Mean Corp Hgb Conc. 31.6 g/dL (33.0-37.0); Mean Corpuscular Volume 101.5 fL (81.0-99.0); Nucleated Red Blood Cells % 0 %; Platelet Count 336 10^3/uL (130-400); Red Cell Dist. Width 13.7 % (11.5-14.5)
[2025-07-14 07:30] LABS: Blood Urea Nitrogen 15 mg/dl (7-17); Calcium 8.9 mg/dl (8.4-10.2); Carbon Dioxide 25 mmol/L (22-30); Chloride 107 mmol/L (98-107); Estimated Creatinine Clearance 87 ml/min; Glucose 87 mg/dl (70-99); Potassium 4.6 mmol/L (3.5-5.1); Sodium 137 mmol/L (135-145); eGFR > 60.00
[2025-07-14 08:09] VITALS: BP 110/80
--- NOTE | 2025-07-14 09:54 | W.PN.HOSP.TC ---
Today's Communication/Plan
-
expect DC today after seen by specialists
Assessment / Plan
Assessment / Plan
Post-Op Wound Infection with breast cellulitis with concern for periprosthetic infection
- CT Chest did not show any discrete collection/abscess. Mild bibasilar atelectasis versus scarring.
- bilateral periprosthetic fluid culture growing klebsiella sensitive to Levaquin
- Plastic Surgery following. ID following
- s/p OR 07/12
- Supportive care with pain control, antipyretics, etc.
Monitor leukocytosis
- receiving IV Cefepime, expect DC on Levaquin later today - follow up further ID recs
Tachycardia
Resolved
- Likely secondary to pain + fever.
- IVF support, antipyretics and pain control.
- Follow for improvement.
Hyponatremia
Resolved
Constipation
Laxatives
Resolved
Benign Hypertension
- Stable. Continue lisinopril with holding parameters.
Hypothyroidism
- Stable. Continue T4 replacement.
DVT Prophylaxis: lovenox; discussed with plastics
Code Status: Full
Anticipated Discharge: Within 24 hours
Subjective/Interval History
-
Date of Service: July 14, 2025
overall feeling well
sutures c/d/i
chest not warm or erythematous
Objective Data
-
Labs:
Laboratory Results
07/14/25
06:29
WBC 10.7
Hgb 10.4 L
Hct 32.9 L
Plt Count 336
Sodium 137
Potassium 4.6
Chloride 107
Carbon Dioxide 25
BUN 15
Creatinine 0.7
Glucose 87
Calcium 8.9
Vital Signs:
Vital Signs
Temp Pulse Resp BP Pulse Ox
98.2 F 92 16 110/80 98
07/14/25 08:09 07/14/25 08:09 07/14/25 08:09 07/14/25 08:09 07/14/25 08:09
I&O
07/13/25 07/14/25 07/15/25
06:59 06:59 06:59
Intake Total 1510 / 1510 960 / 960 240 / 240
Output Total 160 / 160 40 / 40
Balance 1350 / 1350 920 / 920 240 / 240
Review of Systems
-
History Source: Patient
All other systems: Reviewed and negative
Physical Exam
-
General: No Apparent Distress
HEENT: PERRLA
Respiratory: Clear to Auscultation and Other (bilateral sutures c/d/i, no drainage or significant erythema ); Negative Wheezes
Cardiac: Regular Rhythm and S1/S2
GI: Soft and Nontender
Musculoskeletal: No Edema
Skin: Warm and Dry; Negative Rash
Neuro: AO x 3
Psych: Calm
Data Reviewed
-
Diagnostic Radiology: Report Reviewed by me
Labs: Labs Reviewed by me
--- NOTE | 2025-07-14 10:01 | W.PN.ID1 ---
Date of Service
Date of Service: July 14, 2025
Today's Communication
start levofloxacin 750 mg PO qday 07/09-07/22
follow up with plastic surgery
Assessment / Plan
S/p bilateral nipple sparing mastectomies with spacer placement (06/27/25)
Bilateral spacer infection
Fever
Breast pain
Leukocytosis
HTN
Hypothyroidism
Left breast cancer (invasive ductal carcinoma)
Recommendations:
Bilateral Periprosthetic fluid cultures with Klebsiella aerogenes.
07/12/25 tissue expanders removed - noted significant infection. OR cx gram stain many WBC no organisms - culture no growth to date
K. aerogenes tends to carry inducible AmpC resistance from CTX.
Isolate susceptible to levofloxacin
(Cipro interacts with her duloxetine. T/sulfa can increase K+ while on lisinopril)
start levofloxacin 750 mg PO qday 07/09-07/22
follow up with plastic surgery
Chief Complaint
-: Other (surgical site infection)
Subjective / Review of Systems
afebrile
bp stable
no events overnight
QTc acceptable 417 on 07/08
patient is pleased with her progress
Vital Signs / Physical Exam
Vital Signs
Vital Signs
Temp Pulse Resp BP Pulse Ox
98.2 F 92 16 110/80 98
07/14/25 08:09 07/14/25 08:09 07/14/25 08:09 07/14/25 08:09 07/14/25 08:09
Physical Exam
Constitutional: No Acute Distress
Cardiovascular: Regular Rate and S1/S2; Negative Murmur or Rub
Pulmonary: Clear and Symmetric; Negative Wheezes or Rales
Gastrointestinal: Soft, Non Tender, Non Distended and Normal Bowel Sounds
Skin: Warm and Dry; Negative Rash or Jaundice
Wound: Other (bilateral surgical sites evaluated, right breast with some residual erythema, surgical sites well approximated, scant escar along the left surgical site, left breast no erythema)
Objective Data
Lab Data
Lab Results
07/14/25 06:29
07/14/25 06:29
Estimated Creat Clear 87 ml/min 07/14/25 06:29
Lactic Acid 1.9 mmol/L (0.7-2.0) 07/08/25 17:37
Total Bilirubin 0.5 mg/dl (0.2-1.3) 07/08/25 17:37
AST 29 U/L (14-36) 07/08/25 17:37
ALT 19 U/L (0-35) 07/08/25 17:37
Alkaline Phosphatase 67 U/L (38-126) 07/08/25 17:37
Most recent labs reviewed.
Fluid Cult/not urine Final 07/14/25
Moderate Klebsiella aerogenes
Organism 1 Klebsiella aerogenes

* This is an amended result. *
Additiona testing requested by Physician

A prior result that was reported as final has been changed.
KLEAER KLEAER
M.I.C. RX M.I.C. RX
--------- --- --------- ---
Amoxicillin/Potas. Clavulanate >16/8 R
Ampicillin >16 R
Ampicillin/Sulbactam 8/4 R
Aztreonam <=4 S
Cefazolin >16 R
Cefepime <=2 S
Ceftazidime <=1 S
Ceftriaxone <=1 S
Ertapenem <=0.5 S
Ciprofloxacin <=0.25 S
Gentamicin <=2 S
Levofloxacin <=0.5 S
Meropenem <=1 S
Piperacillin/Tazobactam <=8 S
Tetracycline <=4 S
Tobramycin <=2 S
Trimethoprim/Sulfamethoxazole <=2/38 S
Micro Results:
07/09/25 13:15 Body Fluid Culture - Final
Fluid Klebsiella aerogenes
Gram Stain - Final
07/08/25 18:23 Blood Culture - Final
Blood/Venous No Growth - Final Report
07/08/25 17:37 Blood Culture - Final
Blood/Venous No Growth - Final Report
07/12/25 09:37 Wound Culture - Pending
Breast - Left Gram Stain - Preliminary
07/12/25 09:37 Anaerobic Culture - Pending
Breast - Right
07/09/25 13:15 Body Fluid Culture - Final
Fluid Klebsiella aerogenes
Gram Stain - Final
Imaging:
07/08/2025 CT chest with IV contrast: no acute disease in the chest. Bilateral mastectomies with postsurgical changes noted. Mild bibasilar atelectasis versus scarring. Please see full dictation for additional detail. Film personally viewed.
[2025-07-14] MEDS: VISBIOME 1 CAP PO (10:22)
[2025-07-14] MEDS: CYMBALTA DELAYED RELEASE 20 MG PO (10:22)
[2025-07-14] MEDS: SENOKOT-S 1 TABLET PO (10:22)
[2025-07-14] MEDS: MIRALAX 17 GRAMS PO (10:22)
[2025-07-14] MEDS: NEURONTIN 300 MG PO (10:22)
[2025-07-14] MEDS: ZESTRIL PO (10:23)
[2025-07-14] MEDS: LEVAQUIN 750 MG PO (10:25)
[2025-07-14] MEDS: STERILE WATER FOR INJECTION IV (10:31)
[2025-07-14] MEDS: MAXIPIME IV (10:31)
--- NOTE | 2025-07-14 10:50 | CM ---
CM reviewed chart- anticipate dc later day pending specialists clearance
Per chart, plan for oral abx on dc along with B/L drains
Attempted bedside visit- pt occupied in restroom
[facility]- pt accepted for [facility], VN order on chart
Discharge Disposition- home with VN PIPPA
--- NOTE | 2025-07-14 10:51 | VNURNOTE ---
[facility] liaison met with pt at bedside. Confirmed that she would like to resume VN services. Resumption referral accepted in [facility]. Plan is home w/BL Brianna. She plans on going to Plastics appt tomorrow. She is aware that [facility] nurses will call
prior to visits.
[2025-07-14 12:00] VITALS: BP 120/80
--- NOTE | 2025-07-14 12:29 | W.DS.TRANS ---
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
-
Discharge Instructions:
Discharge Diagnosis/Procedures s/p study assistant infection requiring removal
Diet Regular
Additional Diets OTC probiotic
Activity No strenuous activity
Driving Restrictions Not until seen by your Dr
Bathing Restrictions OK to Shower
Other Services VN
Wound Care Strip and record drain output twice daily; light
compression bra
Instructions:
Stand-Alone Forms:
Changes to Home Medications: Yes
Discharge Medications:
DC Medications w/original date entered in [facility]
levothyroxine 75 mcg tablet 75 mcg PO DAILY Thyroid 09/05/19
lisinopril 5 mg tablet 5 mg PO DAILY Blood Pressure 02/28/20
aspirin 81 mg tablet 81 mg PO HS Blood Clot Prevention/Tx 06/26/25
atorvastatin 80 mg tablet 80 mg PO HS cholesterol 06/26/25
benzoyl peroxide 10 % topical cleanser (Foaming Acne Face Wash) 1 applic topical DAILY Skin Issues 06/26/25
clindamycin phosphate 1 % lotion 1 applic topical DAILY Skin Issues 06/26/25
duloxetine 20 mg capsule,delayed release 20 mg PO DAILY depression/anxiety 06/26/25
ezetimibe 10 mg tablet (Zetia) 10 mg PO HS cholesterol 06/26/25
melatonin 1 dose PO HS PRN insomnia 06/26/25
Intrauterine Device 06/27/25
acetaminophen 500 mg tablet (Tylenol Extra Strength) 1,000 mg (2 x 500 mg) PO Q6 30 days #240 tabs 06/27/25
diazepam 5 mg tablet 5 mg PO TID PRN muscle spasms 14 days #42 tabs 06/27/25
gabapentin 300 mg capsule 300 mg PO TID 30 days #90 caps 06/27/25
oxycodone 5 mg tablet 5 mg PO Q6H PRN severe breakthrough pain 14 days #12 tabs 06/27/25
Lactobac/Bifidobac [Visbiome] 1 cap PO DAILY ##0 07/14/25
levofloxacin 750 mg tablet 750 mg PO DAILY 8 days #8 tabs 07/14/25
Home Medication Changes
addition of Levaquin
Pending Results: No
--- NOTE | 2025-07-14 14:11 | W.DCSUMMARY ---
Discharge Summary
Discharge Data
Date of Admission: 07/08/25
Date of Discharge: 07/14/25
-
Pending Results: No
Hospital Course
Discharging Physician : Dr. Jenae Ayon
Disposition : Home
Primary care physician : Dr. Cee Lambert
Principal Discharge diagnosis : Post-op Wound Infection, spacer infection
Hospital Course :
Ms. Rosalina Thomas is a 44 yo woman with hx left breast cancer status post bilateral mastectomies followed by insertion of bilateral tissue expanders on 06/28/25 who presents to the ER with fever up to 102. Triage vitals with T 100.2, P 145, BP 131/79.
Labs with WBC 14.9, lactate 1.9. CT Chest without focal fluid collections to suggest abscess. Patient was started on IV Vanc/Zosyn. She was admitted to medicine with ID and plastic surgery consulting. She underwent surgery 07/12 with removal
of bilateral expanders. Intra-op cultures revealed Klebsiella sensitive to Levaquin. She is discharged on Levaquin through 07/22 to complete a 14 day course. She will have close follow up with Dr. Lincoln.
Time spent on discharge was 35 minutes.
Important imaging findings :
CHEST CT
IMPRESSION:
No acute disease of the chest.
Bilateral mastectomy with postsurgical change.
Mild bibasilar atelectasis versus scarring.
Procedure findings :
Discharge Plan
-
Patient Disposition: Home (Routine Discharge)
Discharge Diagnosis/Procedures: s/p huc infection requiring removal
Diet: Regular
Additional Diets: OTC probiotic
Activity: No strenuous activity
Driving Restrictions: Not until seen by your Dr
Bathing Restrictions: OK to Shower
Other Services: VN
Wound Care: Strip and record drain output twice daily; light compression bra
Activity Restrictions/Additional Instructions:
If taking antacid, iron, zinc, or Carafate, take these products 6 hours before or 2 hours after levofloxacin.
Monitor for tendon pain while on levofloxacin.
Referrals:
Cee Lambert MD [Family Provider, [facility]]
Prescriptions:
New
levofloxacin 750 mg Tablet
750 mg PO DAILY 8 Days Qty: 8 0RF
Lactobac/Bifidobac [Visbiome]
1 cap PO DAILY Qty: 0 0RF
Continued
levothyroxine 75 MCG tablet
75 mcg PO DAILY
lisinopril 5 MG tablet
5 mg PO DAILY
atorvastatin 80 mg Tablet
80 mg PO HS
benzoyl peroxide [Foaming Acne Face Wash] 10 % cleanser
1 applic TOPICAL DAILY
aspirin 81 mg Tablet
81 mg PO HS
clindamycin phosphate 1 % lotion
1 applic TOPICAL DAILY
ezetimibe [Zetia] 10 mg Tablet
10 mg PO HS
duloxetine 20 mg Capsule,Delayed Release(Dr/Ec)
20 mg PO DAILY
melatonin
1 dose PO HS PRN (Reason: insomnia)
Intrauterine Device
Rx Instructions:
implanted currently
acetaminophen [Tylenol Extra Strength] 500 mg Tablet
1,000 mg PO Q6 30 Days Qty: 240 0RF
gabapentin 300 mg Capsule
300 mg PO TID 30 Days Qty: 90 3RF
diazepam 5 mg Tablet
5 mg PO TID PRN (Reason: muscle spasms) 14 Days Qty: 42 0RF
oxycodone 5 mg Tablet
5 mg PO Q6H PRN (Reason: severe breakthrough pain) 14 Days Qty: 12 0RF
Patient Comments:
denies taking anytime recently
Discontinued
cefadroxil 500 mg capsule
500 mg PO BID Qty: 42 0RF
Patient Comments:
PO antibotic for when d/c home
Discharge Orders:
Discharge Patient (As Directed); Ordered 07/14/25
Ordered By: Jenae L. Ayon
Discharge Date and Time
Discharge Date/Time: 07/14/25 13:35
Print Language: CUBAN
== END 2025-07-14 13:35 | disposition home health service (06) | DRG 908 ==
LOC: 2 SOUTH 20:10
PROVIDERS: Internal Medicine; ADMITTING PHYSICIAN Hospitalist; ATTENDING PHYSICIAN Student in an Organized Health Care Education/Training Program; CONSULT PHYSICIAN Internal Medicine Infectious Disease; CONSULT PHYSICIAN Surgery Plastic and Reconstructive Surgery; EMERGENCY PHYSICIAN Student in an Organized Health Care Education/Training Program; FAMILY PHYSICIAN Family Medicine; REFERRING PHYSICIAN Surgery
PROC: 0HPU0NZ Removal of Tissue Expander from Left Breast, Open Approach (ICD-10-PCS; 2025-07-12)
PROC: 0HPT0NZ Removal of Tissue Expander from Right Breast, Open Approach (ICD-10-PCS; 2025-07-12)
DX: T85.79XA Infection and inflammatory reaction due to other internal prosthetic devices, implants and grafts, initial encounter (principal); E87.1 Hypo-osmolality and hyponatremia; J98.11 Atelectasis; Z90.13 Acquired absence of bilateral breasts and nipples; Z85.3 Personal history of malignant neoplasm of breast; B96.1 Klebsiella pneumoniae [K. pneumoniae] as the cause of diseases classified elsewhere; Y83.1 Surgical operation with implant of artificial internal device as the cause of abnormal reaction of the patient, or of later complication, without mention of misadventure at the time of the procedure; I10 Essential (primary) hypertension; E03.9 Hypothyroidism, unspecified; F32.A Depression, unspecified; F41.9 Anxiety disorder, unspecified; Z82.49 Family history of ischemic heart disease and other diseases of the circulatory system; Z79.899 Other long term (current) drug therapy; Z79.82 Long term (current) use of aspirin; Z79.890 Hormone replacement therapy; E78.00 Pure hypercholesterolemia, unspecified
CPT/HCPCS: 71260; 80048; 80053; 83605; 85025; 85027; 87015; 87040; 87070; 87075; 87077; 87176; 87186; 87205; 93005; 96365; 96366; 99285; C1729; Q9967